=== PATIENT | female | born 1955 | race Caucasian/White ===

== ENCOUNTER 2019-06-16 18:28 | Emergency (ER) | payer OTHER ==
[2019-06-16] MEDS ORDERED: DUONEB 0.5-3 MG/3 ml Neb IH ONE ×2 (18:46→18:54)
--- NOTE | 2019-06-16 18:58 | ERPHSYRPT ---
- History of Present Illness Time Seen by Provider: 06/16/19 18:56 Source: patient Exam Limitations: no limitations Patient Subjective Stated Complaint: Patient states she has had severe cough, sore throat, and body aches for over a week. Patient states she seen PCP on and had strep test completed in which was negative. Patient was started on cephalexin 06/11/19 for sinusitis. Patient states she has had a runny nose and that she has been having pain in left ear. Triage Nursing Assessment: Patient arrived to ER. Patient ambulated to room with steady gait. Patient able to answer questions appropriatley. Overall color pale. Skin warm and dry. Lungs diminished A/P throughout. Patient noted to have dry productive cough. Patient noted with runny nose. Patient denies SOB. Respiratory easy non-labored. No respiratory distress noted. Physician History: Patient states she has had severe cough, sore throat, and body aches for over a week. Patient states she seen PCP on 06/11/19 and had strep test completed in which was negative. Patient was started on cephalexin 06/11/19 for sinusitis. Patient states she has had a runny nose and that she has been having pain in left ear. Timing/Duration: day(s) (5 days ago) Cough Quality/Degree: productive cough Associated Symptoms: fever, chills, chest pain/soreness, cough, headache, sore throat International travel in last 2 weeks: No Allergies/Adverse Reactions: levofloxacin [From Levaquin] Allergy (Verified 06/16/19 18:37) shellfish derived Allergy (Verified 06/16/19 18:37) Home Medications: Aspirin 81 gm Chew [Baby Aspirin 81 mg Chew] 81 mg PO DAILY 06/16/19 [ History] Cephalexin Mh 250 mg [Keflex 250 mg] 250 mg PO QID 06/16/19 [History] Gabapentin 100 mg PO DAILY 06/16/19 [History] Hydrocodone/Acetaminophen [Hydrocodone-Acetamin 10-325 mg] 10 - 325 mg PO Q6H PRN PRN 06/16/19 [History] Montelukast Sodium 10 mg [Singulair 10 MG] 10 mg PO DAILY 06/16/19 [History] Hx Tetanus, Diphtheria Vaccination/Date Given: No Hx Influenza Vaccination/Date Given: Yes Hx Pneumococcal Vaccination/Date Given: Yes - Review of Systems Constitutional: Fever, Chills Eyes: No Symptoms Ears, Nose, & Throat: No Symptoms Respiratory: Cough, Wheezing, No Dyspnea Cardiac: No Chest Pain, No Edema, No Syncope Abdominal/Gastrointestinal: No Abdominal Pain, No Nausea, No Vomiting, No Diarrhea Genitourinary Symptoms: No Dysuria Musculoskeletal: No Back Pain, No Neck Pain Skin: No Rash Neurological: No Dizziness, No Focal Weakness, No Sensory Changes Psychological: No Symptoms Endocrine: No Symptoms All Other Systems: Reviewed and Negative - Past Medical History Neurological History: Stroke ENT History: Other Cardiac History: High Cholesterol, Hypertension Respiratory History: No Pertinent History Endocrine Medical History: Diabetes Type I Musculoskeletal History: Arthritis, Fibromyalgia GI Medical History: GI Bleed History: No Pertinent History Psycho-Social History: No Pertinent History Female Reproductive Disorders: No Pertinent History - Past Surgical History Past Surgical History: Yes Neuro Surgical History: No Pertinent History Cardiac: CABG, Pacemaker Respiratory: No Pertinent History Gastrointestinal: No Pertinent History Genitourinary: No Pertinent History Musculoskeletal: No Pertinent History Female Surgical History: Hysterectomy - Social History Smoking Status: Former smoker Exposure to second hand smoke: Yes Drug Use: none Patient Lives Alone: No - Nursing Vital Signs Nursing Vital Signs: Initial Vital Signs Temperature 98.1 F 06/16/19 18:37 Pulse Rate 73 06/16/19 18:37 Respiratory Rate 18 06/16/19 18:37 Blood Pressure 149/84 06/16/19 18:37 O2 Sat by Pulse Oximetry 97 06/16/19 18:37 Pain Scale Pain Intensity 0 - Physical Exam General Appearance: no apparent distress, alert Eye Exam: PERRL/EOMI, eyes nml inspection Ears, Nose, Throat Exam: normal ENT inspection, TMs normal, pharynx normal, moist mucous membranes Neck Exam: normal inspection, non-tender, supple, full range of motion Respiratory Exam: normal breath sounds, diminished breath sounds, crackles/rales , rhonchi, wheezing, No respiratory distress Cardiovascular Exam: regular rate/rhythm, normal heart sounds Gastrointestinal/Abdomen Exam: soft, No tenderness Back Exam: normal inspection, No CVA tenderness, No vertebral tenderness Extremity Exam: normal inspection, normal range of motion Neurologic Exam: alert, oriented x 3, cooperative, normal mood/affect, sensation nml, No motor deficits Skin Exam: normal color, warm, dry, No rash Lymphatic Exam: No adenopathy SpO2: 99 - Course Nursing assessment & vital signs reviewed: Yes - Radiology Exams Chest X-ray Interpretation: Reviewed by me Ordered Tests: Active Orders 24 hr Category Date Time Status CHEST 2 VIEWS (PA AND LAT) Stat Exams 06/16/19 18:46 Completed CBC W DIFF Stat Lab 06/16/19 19:04 Completed CMP Stat Lab 06/16/19 19:04 Completed Respiratory Therapy Assessment DAILY RT 06/16/19 19:06 Completed Medication Summary Discontinued Medications Generic Name Dose Route Start Last Admin Trade Name Freq PRN Reason Stop Dose Admin Albuterol/Ipratropium 3 ml 06/16/19 18:46 06/16/19 18:57 Duoneb 0.5-3 Mg/3 Ml Neb IH 06/16/19 18:47 3 ml STAT ONE Administration Albuterol/Ipratropium Confirm 06/16/19 18:54 Duoneb 0.5-3 Mg/3 Ml Neb Administered 06/16/19 18:55 Dose 3 ml IH .STK-MED ONE Ceftriaxone Sodium 1,000 mg 06/16/19 19:55 06/16/19 20:22 Rocephin 1000 Mg Inj IM 06/16/19 19:56 1,000 mg STAT ONE Administration Ceftriaxone Sodium Confirm 06/16/19 20:10 Rocephin 1000 Mg Inj Administered 06/16/19 20:11 Dose 1,000 mg .ROUTE .STK-MED ONE Lidocaine HCl Confirm 06/16/19 20:10 Xylocaine 1% Hcl 20 Ml Mdv Administered 06/16/19 20:11 Dose 3 ml .ROUTE .STK-MED ONE Methylprednisolone Sodium Succinate 125 mg 06/16/19 19:57 06/16/19 20:21 Solu-Medrol 125 Mg IM 06/16/19 19:58 125 mg STAT ONE Administration Methylprednisolone Sodium Succinate Confirm 06/16/19 20:10 Solu-Medrol 125 Mg Administered 06/16/19 20:11 Dose 125 mg .ROUTE .STK-MED ONE Lab/Rad Data: Laboratory Result Diagrams 06/16/19 19:04 06/16/19 19:04 Laboratory Results 06/16/19 06/16/19 06/16/19 Range/Units Unknown 19:04 19:04 WBC 5.1 (4.0-10.5) K/mm3 RBC 4.39 (4.1-5.4) M/mm3 Hgb 13.0 (12.0-16.0) gm/dl Hct 41.1 (35-47) % MCV 93.6 (78-100) fl MCH 29.6 (26-32) pg MCHC 31.6 L (32-36) g/dl RDW 15.1 H (11.5-14.0) % Plt Count 236 (150-450) K/mm3 MPV 10.0 H (7.5-11.0) fl Gran % 58.2 (36.0-66.0) % Eos # (Auto) 0.10 (0-0.5) Absolute Lymphs (auto) 1.26 (1.0-4.6) Absolute Monos (auto) 0.73 (0.0-1.3) Lymphocytes % 24.8 (24.0-44.0) % Monocytes % 14.4 H (0.0-12.0) % Eosinophils % 2.0 (0.00-5.0) % Basophils % 0.6 (0.0-0.4) % Absolute Granulocytes 2.96 (1.4-6.9) Basophils # 0.03 (0-0.4) Sodium 140 (137-145) mmol/L Potassium 4.1 (3.5-5.1) mmol/L Chloride 106 (98-107) mmol/L Carbon Dioxide 27 (22-30) mmol/L Anion Gap 11.2 (5-15) MEQ/L BUN 18 H (7-17) mg/dL Creatinine 0.90 (0.52-1.04) mg/dL Estimated GFR > 60.0 ML/MIN Glucose 183 H (74-106) mg/dL Calcium 9.6 (8.4-10.2) mg/dL Total Bilirubin 0.30 (0.2-1.3) mg/dL AST 23 (14-36) U/L ALT 17 (0-35) U/L Alkaline Phosphatase 61 (38-126) U/L Serum Total Protein 7.1 (6.3-8.2) g/dL Albumin 4.2 (3.5-5.0) g/dL Influenza Type A Ag NEGATIVE (NEGATIVE) Influenza Type B Ag NEGATIVE (NEGATIVE) RSV (PCR) POSITIVE (Negative) - Progress Progress: improved Air Movement: good Blood Culture(s) Obtained: No Antibiotics given: Yes Counseled pt/family regarding: lab results, diagnosis, need for follow-up, rad results - Departure Departure Disposition: Home Clinical Impression: Bronchitis, RSV bronchitis Condition: Stable Critical Care Time: No Referrals: GALINDO NEWELL [Primary Care Provider] - Instructions: Acute Bronchitis, Adult (DC) Additional Instructions: ONEIDABrittaneyCARLOZ DICKINSON was seen on 06/16/19 n the Emergency Room. At that time you were treated for an emergent condition, during your visit Laboratory, Radiology and/or other procedures may have been ordered. It is very important that you follow-up with your Primary Care Physician GALINDO NEWELL within the next 24-48 hours to review your Emergency Room visit and the final results of testing that was ordered. Some test results such as Urine Cultures, Blood Cultures, and other cultures if ordered will not be finalized for 24-48 hours. If you do not have a Primary Care Provider please call the medical records department at [phone] ext [phone] to obtain a copy of your results or you may sign into our patient portal to obtain these results by visiting us @ [email or web address] and completing the following steps: 1. Click on the Patient Portal link 2. Click the Patient Self Enrollment Link to complete the enrollment form and entering your 3. Once the enrollment form is completed you will receive an email with a temporary ID and password at the email address you provided. 4. Next choose a user name and password. Your user name must be at least 4 characters long and your password must be at least 4 characters long. 5. Choose a security question from the list and provide your answer to the question. If you already have signed into the Health Portal you may access your Health Care Information 03/01 by the following steps: 1. Login to our website @ [email or web address] 2. Enter your original user name and password. FAQS The [facility] Health Portal is an online tool that contains your Lab Results, Radiology Reports, Visit History, Discharge Instructions and Health Summary Lab and Radiology Results will not be available for 72 hours on the portal. The Portal is a secure site, passwords are encryted and URLs are re-written so they cannot be copied and pasted. You and authorized family members are the only ones who can access your Portal. Also there is a timeout feature that protects your information if you leave the Portal page open. If you have technical difficulty please use the Contact Us link on the page this will allow you to submit any questions you have regarding the Portal or you may contact the Medical Record Department at [phone] ext [phone]. Prescriptions: Methylprednisolone Packet [Medrol Dosepack] 4 mg PO UD #30 packet
[2019-06-16 19:31] LABS: Absolute Neutrophil Ct (ANC) 2.96 (1.4-6.9); BASOPHIL % 0.6 % (0.0-0.4); Basophil (Absolute #) 0.03 (0-0.4); Hematocrit 41.1 % (35-47); Lymphocyte (Absolute #) 1.26 (1.0-4.6); Lymphocytes % 24.8 % (24.0-44.0); Mean Cell Volume 93.6 fl (78-100); Mean Corpuscular Hemoglobin 29.6 pg (26-32); Mean Corpuscular Hgb Concent. 31.6 g/dl (32-36); Monocyte (Absolute #) 0.73 (0.0-1.3); Monocytes % 14.4 % (0.0-12.0); Neutrophil % 58.2 % (36.0-66.0); Platelet Count 236 K/mm3 (150-450); Red Blood Count 4.39 M/mm3 (4.1-5.4); Red Cell Distribution Width 15.1 % (11.5-14.0); White Blood Count 5.1 K/mm3 (4.0-10.5)
[2019-06-16 19:36] LABS: ALBUMIN 4.2 g/dL (3.5-5.0); ALKALINE PHOSPHATASE 61 U/L (38-126); ANION GAP 11.2 MEQ/L (5-15); BLOOD UREA NITROGEN 18 mg/dL (7-17); CHLORIDE 106 mmol/L (98-107); Calcium 9.6 mg/dL (8.4-10.2); Carbon Dioxide 27 mmol/L (22-30); Glucose 183 mg/dL (74-106); Potassium 4.1 mmol/L (3.5-5.1); SGOT/AST 23 U/L (14-36); SGPT/ALT 17 U/L (0-35); SODIUM 140 mmol/L (137-145); Total Protein 7.1 g/dL (6.3-8.2)
[2019-06-16] MEDS ORDERED: Rocephin 1000 MG INJ IM ONE (19:55)
[2019-06-16] MEDS ORDERED: solu-MEDROL 125 MG IM ONE (19:57)
[2019-06-16] MEDS ORDERED: Rocephin 1000 MG INJ ONE (20:10)
[2019-06-16] MEDS ORDERED: XYLOCAINE 1% HCL 20 ML MDV ONE (20:10)
[2019-06-16] MEDS ORDERED: solu-MEDROL 125 MG ONE (20:10)
--- NOTE | 2019-06-16 20:12 | XRAY ---
Indication: Short of breath. Comparison: None PA/lateral chest demonstrates bilateral fibrosis/scarring. No focal infiltrate, consolidation, or large effusion. Heart is not enlarged with incidental CABG surgery and left-sided dual lead pacemaker. Bony thorax intact with mild osteopenia and degenerative changes. Impression: Nonacute chest with chronic features.
[2019-06-16 20:48] LABS: INFLUENZA A NEGATIVE (NEGATIVE); INFLUENZA B NEGATIVE (NEGATIVE)
[2019-06-16 20:49] LABS: RESPIRATORY SYNCTIAL VIRUS POSITIVE (Negative)
[2019-06-16 20:57] VITALS: BP 176/78; PULSE 68
[2019-06-16 21:01] VITALS: O2SAT 99
== END 2019-06-16 20:57 | disposition home or self-care (01) ==
LOC: ED 18:28
DX: J20.5 Acute bronchitis due to respiratory syncytial virus (principal)
CPT/HCPCS: 36415; 71046; 80053; 85025; 87631; 94640; 96372; 99284; J0696; J2930; A9270-GY

== ENCOUNTER 2019-06-29 20:10 | Emergency (ER) | payer OTHER ==
[2019-06-29] MEDS ORDERED: solu-MEDROL 125 MG IV ONE (20:31)
[2019-06-29] MEDS ORDERED: Sodium Chloride 0.9% 1000 ML 1,000 ML IV STA (20:31)
[2019-06-29] MEDS ORDERED: Pepcid 20 MG PO ONE (20:31)
--- NOTE | 2019-06-29 20:31 | ERPHSYRPT ---
- History of Present Illness Time Seen by Provider: 06/29/19 20:17 Source: patient Exam Limitations: no limitations Patient Subjective Stated Complaint: itching Physician History: treatment for bronchitis for 2 weeks. She has had 3 different antibiotics orally and injections. She took Ceftinir tonight and developed pruritus. no difficulty breathing Timing/Duration: week(s) (2) Quality: itchy Severity: mild Location: generalized Possible Causes: medications Modifying Factors: Improves With: antihistamine Associated Symptoms: denies symptoms Allergies/Adverse Reactions: levofloxacin [From Levaquin] Allergy (Verified 06/16/19 18:37) shellfish derived Allergy (Verified 06/16/19 18:37) Home Medications: Aspirin 81 gm Chew [Baby Aspirin 81 mg Chew] 81 mg PO DAILY 06/16/19 [ History] Cephalexin Mh 250 mg [Keflex 250 mg] 250 mg PO QID 06/16/19 [History] Gabapentin 100 mg PO DAILY 06/16/19 [History] Hydrocodone/Acetaminophen [Hydrocodone-Acetamin 10-325 mg] 10 - 325 mg PO Q6H PRN PRN 06/16/19 [History] Montelukast Sodium 10 mg [Singulair 10 MG] 10 mg PO DAILY 06/16/19 [History] Hx Tetanus, Diphtheria Vaccination/Date Given: No Hx Influenza Vaccination/Date Given: Yes Hx Pneumococcal Vaccination/Date Given: Yes - Review of Systems Constitutional: No Fever, No Chills Eyes: No Symptoms Ears, Nose, & Throat: No Symptoms Respiratory: No Cough, No Dyspnea Cardiac: No Chest Pain, No Edema, No Syncope Abdominal/Gastrointestinal: No Abdominal Pain, No Nausea, No Vomiting, No Diarrhea Genitourinary Symptoms: No Dysuria Musculoskeletal: No Back Pain, No Neck Pain Skin: Pruritis, No Rash Neurological: No Dizziness, No Focal Weakness, No Sensory Changes Psychological: No Symptoms Endocrine: No Symptoms All Other Systems: Reviewed and Negative - Past Medical History Neurological History: Stroke ENT History: Other Cardiac History: High Cholesterol, Hypertension Respiratory History: No Pertinent History Endocrine Medical History: Diabetes Type I Musculoskeletal History: Arthritis, Fibromyalgia GI Medical History: GI Bleed History: No Pertinent History Psycho-Social History: No Pertinent History Female Reproductive Disorders: No Pertinent History - Past Surgical History Past Surgical History: Yes Neuro Surgical History: No Pertinent History Cardiac: CABG, Pacemaker Respiratory: No Pertinent History Gastrointestinal: No Pertinent History Genitourinary: No Pertinent History Musculoskeletal: No Pertinent History Female Surgical History: Hysterectomy - Social History Smoking Status: Former smoker Exposure to second hand smoke: Yes Drug Use: none Patient Lives Alone: No - Nursing Vital Signs Nursing Vital Signs: Initial Vital Signs Temperature 98.6 F 06/29/19 20:17 Pulse Rate 67 06/29/19 20:17 Respiratory Rate 18 06/29/19 20:17 Blood Pressure 175/101 06/29/19 20:17 O2 Sat by Pulse Oximetry 98 06/29/19 20:17 Pain Scale Pain Intensity 0 - Physical Exam General Appearance: mild distress, alert Eye Exam: PERRL/EOMI, eyes nml inspection Ears, Nose, Throat Exam: normal ENT inspection, pharynx normal, moist mucous membranes Neck Exam: normal inspection, non-tender, supple, full range of motion Respiratory Exam: normal breath sounds, lungs clear, No respiratory distress Cardiovascular Exam: regular rate/rhythm, normal heart sounds Gastrointestinal/Abdomen Exam: soft, mass, No tenderness Back Exam: normal inspection, normal range of motion, No CVA tenderness, No vertebral tenderness Extremity Exam: normal inspection, normal range of motion Neurologic Exam: alert, oriented x 3, cooperative, normal mood/affect, sensation nml, No motor deficits Skin Exam: normal color, warm, dry SpO2 Interpretation: normal SpO2: 98 O2 Delivery: Room Air - Course Nursing assessment & vital signs reviewed: Yes - Radiology Exams Chest X-ray Interpretation: Interpreted by me, Negative, No Infiltrates Ordered Tests: Active Orders 24 hr Category Date Time Status IV Insertion STAT Care 06/29/19 20:31 Active CHEST 1 VIEW (PORTABLE) Stat Exams 06/29/19 20:32 Taken AMYLASE Stat Lab 06/29/19 20:35 Completed BLOOD CULTURE Stat Lab 06/29/19 21:06 Received CBC W DIFF Stat Lab 06/29/19 20:39 Completed CMP Stat Lab 06/29/19 20:39 Completed LIPASE Stat Lab 06/29/19 20:35 Completed Lactic Acid Stat Lab 06/29/19 20:55 Completed Medication Summary Generic Name Dose Route Start Last Admin Trade Name Freq PRN Reason Stop Dose Admin Sodium Chloride 1,000 mls @ 999 mls/hr 06/29/19 20:31 06/29/19 20:47 Sodium Chloride 0.9% 1000 Ml IV 06/29/19 21:31 999 mls/hr .[id number] STA Administration Discontinued Medications Generic Name Dose Route Start Last Admin Trade Name Saul PRN Reason Stop Dose Admin Famotidine 20 mg 06/29/19 20:31 06/29/19 20:47 Pepcid 20 Mg PO 06/29/19 20:32 20 mg STAT ONE Administration Famotidine Confirm 06/29/19 20:43 Pepcid 20 Mg Administered 06/29/19 20:44 Dose 20 mg .ROUTE .STK-MED ONE Sodium Chloride Confirm 06/29/19 20:43 Sodium Chloride 0.9% 1000 Ml Administered 06/29/19 20:44 Dose 1,000 mls @ ud .ROUTE .STK-MED ONE Levetiracetam 1,000 mg/ 110 mls @ 220 mls/hr 06/29/19 21:16 06/29/19 21:24 Dextrose IV 06/29/19 21:45 Not Given STAT ONE Methylprednisolone Sodium Succinate 125 mg 06/29/19 20:31 06/29/19 20:47 Solu-Medrol 125 Mg IV 06/29/19 20:32 125 mg STAT ONE Administration Methylprednisolone Sodium Succinate Confirm 06/29/19 20:43 Solu-Medrol 125 Mg Administered 06/29/19 20:44 Dose 125 mg .ROUTE .STK-MED ONE Lab/Rad Data: Laboratory Result Diagrams 06/29/19 20:39 06/29/19 20:39 Laboratory Results 06/29/19 06/29/19 06/29/19 Range/Units 20:55 20:39 20:39 WBC 9.9 (4.0-10.5) K/mm3 RBC 4.50 (4.1-5.4) M/mm3 Hgb 13.5 (12.0-16.0) gm/dl Hct 41.8 (35-47) % MCV 92.9 (78-100) fl MCH 30.0 (26-32) pg MCHC 32.3 (32-36) g/dl RDW 15.2 H (11.5-14.0) % Plt Count 242 (150-450) K/mm3 MPV 9.6 (7.5-11.0) fl Gran % 67.4 H (36.0-66.0) % Eos # (Auto) 0.13 (0-0.5) Absolute Lymphs (auto) 2.24 (1.0-4.6) Absolute Monos (auto) 0.83 (0.0-1.3) Lymphocytes % 22.6 L (24.0-44.0) % Monocytes % 8.4 (0.0-12.0) % Eosinophils % 1.3 (0.00-5.0) % Basophils % 0.3 (0.0-0.4) % Absolute Granulocytes 6.67 (1.4-6.9) Basophils # 0.03 (0-0.4) Sodium 138 (137-145) mmol/L Potassium 4.0 (3.5-5.1) mmol/L Chloride 105 (98-107) mmol/L Carbon Dioxide 26 (22-30) mmol/L Anion Gap 11.5 (5-15) MEQ/L BUN 14 (7-17) mg/dL Creatinine 0.76 (0.52-1.04) mg/dL Estimated GFR > 60.0 ML/MIN Glucose 155 H (74-106) mg/dL Lactic Acid 1.7 (0.4-2.0) Calcium 9.2 (8.4-10.2) mg/dL Total Bilirubin 0.30 (0.2-1.3) mg/dL AST 30 (14-36) U/L ALT 30 (0-35) U/L Alkaline Phosphatase 73 (38-126) U/L Serum Total Protein 7.1 (6.3-8.2) g/dL Albumin 4.2 (3.5-5.0) g/dL Amylase (30-110) U/L Lipase (23-300) U/L 06/29/19 Range/Units 20:35 WBC (4.0-10.5) K/mm3 RBC (4.1-5.4) M/mm3 Hgb (12.0-16.0) gm/dl Hct (35-47) % MCV (78-100) fl MCH (26-32) pg MCHC (32-36) g/dl RDW (11.5-14.0) % Plt Count (150-450) K/mm3 MPV (7.5-11.0) fl Gran % (36.0-66.0) % Eos # (Auto) (0-0.5) Absolute Lymphs (auto) (1.0-4.6) Absolute Monos (auto) (0.0-1.3) Lymphocytes % (24.0-44.0) % Monocytes % (0.0-12.0) % Eosinophils % (0.00-5.0) % Basophils % (0.0-0.4) % Absolute Granulocytes (1.4-6.9) Basophils # (0-0.4) Sodium (137-145) mmol/L Potassium (3.5-5.1) mmol/L Chloride (98-107) mmol/L Carbon Dioxide (22-30) mmol/L Anion Gap (5-15) MEQ/L BUN (7-17) mg/dL Creatinine (0.52-1.04) mg/dL Estimated GFR ML/MIN Glucose (74-106) mg/dL Lactic Acid (0.4-2.0) Calcium (8.4-10.2) mg/dL Total Bilirubin (0.2-1.3) mg/dL AST (14-36) U/L ALT (0-35) U/L Alkaline Phosphatase (38-126) U/L Serum Total Protein (6.3-8.2) g/dL Albumin (3.5-5.0) g/dL Amylase 72 (30-110) U/L Lipase 142 (23-300) U/L - Progress Progress: unchanged - Departure Departure Disposition: Home Clinical Impression: Allergic reaction Condition: Stable Critical Care Time: No Referrals: GALINDO NEWELL [Primary Care Provider] - Instructions: Adverse Drug Reactions, Adult (DC)
[2019-06-29] MEDS ORDERED: Sodium Chloride 0.9% 1000 ML 1,000 ML ONE (20:43)
[2019-06-29] MEDS ORDERED: Pepcid 20 MG ONE (20:43)
[2019-06-29] MEDS ORDERED: solu-MEDROL 125 MG ONE (20:43)
[2019-06-29 20:50] LABS: Absolute Neutrophil Ct (ANC) 6.67 (1.4-6.9); BASOPHIL % 0.3 % (0.0-0.4); Basophil (Absolute #) 0.03 (0-0.4); Eosinophil % 1.3 % (0.00-5.0); Eosinophil (Absolute #) 0.13 (0-0.5); Hematocrit 41.8 % (35-47); Hemoglobin 13.5 gm/dl (12.0-16.0); Lymphocyte (Absolute #) 2.24 (1.0-4.6); Lymphocytes % 22.6 % (24.0-44.0); Mean Cell Volume 92.9 fl (78-100); Mean Corpuscular Hgb Concent. 32.3 g/dl (32-36); Mean Platelet Volume 9.6 fl (7.5-11.0); Monocyte (Absolute #) 0.83 (0.0-1.3); Monocytes % 8.4 % (0.0-12.0); Neutrophil % 67.4 % (36.0-66.0); Platelet Count 242 K/mm3 (150-450); Red Cell Distribution Width 15.2 % (11.5-14.0); White Blood Count 9.9 K/mm3 (4.0-10.5)
[2019-06-29 20:55] LABS: AMYLASE 72 U/L (30-110); LIPASE 142 U/L (23-300)
[2019-06-29 20:56] LABS: ALBUMIN 4.2 g/dL (3.5-5.0); ALKALINE PHOSPHATASE 73 U/L (38-126); ANION GAP 11.5 MEQ/L (5-15); BLOOD UREA NITROGEN 14 mg/dL (7-17); CHLORIDE 105 mmol/L (98-107); Calcium 9.2 mg/dL (8.4-10.2); Carbon Dioxide 26 mmol/L (22-30); Creatinine 1 0.76 mg/dL (0.52-1.04); Glucose 155 mg/dL (74-106); SGOT/AST 30 U/L (14-36); SGPT/ALT 30 U/L (0-35); SODIUM 138 mmol/L (137-145); Total Protein 7.1 g/dL (6.3-8.2)
[2019-06-29] MEDS ORDERED: Keppra 500 MG/5 ML*** 1,000 MG in D5w 100ML Mini Bag 100 ML 100 ML IV ONE (21:16)
[2019-06-29 21:28] VITALS: PULSE 60
[2019-06-29 21:48] VITALS: BP 133/85; O2SAT 97
--- NOTE | 2019-06-30 08:15 | XRAY ---
Indication: Cough. Comparison: June 16, 2019. Portable apical lordotic chest demonstrates stable bilateral fibrosis/scarring, CABG surgery, and left sided pacemaker. Remaining heart and lungs unremarkable. No new/acute findings.
== END 2019-06-29 21:49 | disposition home or self-care (01) ==
LOC: ED 20:10
DX: T78.40XA Allergy, unspecified, initial encounter (principal); L29.9 Pruritus, unspecified; I10 Essential (primary) hypertension; E10.9 Type 1 diabetes mellitus without complications; M79.7 Fibromyalgia; Z95.0 Presence of cardiac pacemaker
CPT/HCPCS: 36000; 36415; 71045; 80053; 82150; 83605; 83690; 85025; 87040; 96360; 96374; 99284; J2930; A9270-GY

== ENCOUNTER 2020-06-18 15:17 | Emergency (ER) | payer OTHER ==
[2020-06-18] MEDS ORDERED: Zofran 4 MG/2 ML VIAL IV ONE (15:33)
[2020-06-18] MEDS ORDERED: MORPHINE SULFATE 4 MG INJ IV ONE (15:33)
[2020-06-18] MEDS ORDERED: Norflex 60 MG/2 ML IV ONE (15:35)
--- NOTE | 2020-06-18 15:42 | ERPHSYRPT ---
- History of Present Illness Time Seen by Provider: 06/18/20 15:30 Source: patient Exam Limitations: no limitations Patient Subjective Stated Complaint: back pain and chest pain Triage Nursing Assessment: pt to ED c/o lower back pain that radiates to chest, L arm, and neck. pt states pain is sharp and intermittent. "spasm once in a while." pt states she has pacemaker but it is due to be replaced soon, "I'm waiting to hear a beep." pt rates 9/10 pain in back. ambulatory with 1 assist. pt states she fell to the floor this am after getting out of bed and is now worried about pacemaker. Physician History: 64 years old female with history of coronary artery disease status post CABG, pacemaker placement, chronic back pain going through pain management presented in the ER with chief complaint of low back pain. Patient reports she was getting off of the bed, her knees gave away and fell on the floor. She hit her back on the side of the bed. She is complaining of worsening low back pain with radiation to upper mid back. She denies any chest pain or palpitations. Or shortness of breath. Patient report because of the fall she is having pain in the upper back with radiation to the both arms. No fever or chills reported. Timing/Duration: today, sudden, worse Method of Injury: fall Quality: sharp Back Pain Location: lumbar spine, paraspinous muscles Back Pain Radiation: buttocks, upper legs Severity of Pain-Max: severe Severity of Pain-Current: severe Modifying Factors: Improves With: immobilization, pain medication. Worsens With: movement Associated Symptoms: lower back pain, muscle spasms, No urinary incontinence, No loss of bowel control, No vomiting, No problems urinating, No light-headedness, No numbness in legs/feet, No weakness, No sensory/motor loss, No tingling in legs/feet Previous symptoms: same symptoms as today Allergies/Adverse Reactions: levofloxacin [From Levaquin] Allergy (Verified 06/18/20 15:27) shellfish derived Allergy (Verified 06/18/20 15:27) Home Medications: Aspirin 81 gm Chew [Baby Aspirin 81 mg Chew] 81 mg PO DAILY 06/16/19 [History] Cephalexin Mh 250 mg [Keflex 250 mg] 250 mg PO QID 06/16/19 [History] Gabapentin 100 mg PO DAILY 06/16/19 [History] Hydrocodone/Acetaminophen [Hydrocodone-Acetamin 10-325 mg] 10 - 325 mg PO Q6H PRN PRN 06/16/19 [History] Montelukast Sodium 10 mg [Singulair 10 MG] 10 mg PO DAILY 06/16/19 [History] Hx Tetanus, Diphtheria Vaccination/Date Given: No Hx Influenza Vaccination/Date Given: Yes Hx Pneumococcal Vaccination/Date Given: Yes Travel Risk - International Travel Have you traveled outside of the country in past 3 weeks: No - Coronavirus Screening Are you exhibiting any of the following symptoms?: No Close contact with a COVID-19 positive Pt in past 14-21 Days: No - Past Medical History Neurological History: Stroke ENT History: Other Cardiac History: High Cholesterol, Hypertension Respiratory History: No Pertinent History Endocrine Medical History: Diabetes Type I Musculoskeletal History: Arthritis, Fibromyalgia GI Medical History: GI Bleed History: No Pertinent History Psycho-Social History: No Pertinent History Female Reproductive Disorders: No Pertinent History - Past Surgical History Past Surgical History: Yes Neuro Surgical History: No Pertinent History Cardiac: CABG, Cardiac Catheterization, Cardiac Stent, Pacemaker Respiratory: No Pertinent History Gastrointestinal: No Pertinent History Genitourinary: No Pertinent History Musculoskeletal: No Pertinent History Female Surgical History: Hysterectomy - Social History Smoking Status: Former smoker Exposure to second hand smoke: Yes Drug Use: none Patient Lives Alone: No () - Female History Hx Now: No - Nursing Vital Signs Nursing Vital Signs: Initial Vital Signs Pulse Rate 102 H 06/18/20 15:18 Respiratory Rate 25 H 06/18/20 15:18 Blood Pressure 148/108 06/18/20 15:18 O2 Sat by Pulse Oximetry 98 06/18/20 15:18 Pain Scale Pain Intensity [Lower Back] 9 Pain Intensity 5 - Physical Exam General Appearance: no apparent distress Eye Exam: PERRL/EOMI, eyes nml inspection Ears, Nose, Throat Exam: normal ENT inspection, TMs normal, pharynx normal Neck Exam: normal inspection, non-tender, supple, full range of motion Respiratory Exam: normal breath sounds, lungs clear, No chest tenderness Cardiovascular Exam: regular rate/rhythm, normal heart sounds Gastrointestinal Exam: soft, normal bowel sounds (40 years quality), No tenderness (Body quantity equina) Back Exam: normal inspection ( oxygenation), vertebral tenderness (lumbar), decreased range of motion, muscle spasm, point tenderness, other (SLR B/L positive at 30 degree elevation), No CVA tenderness Extremity Exam: normal inspection, normal range of motion Neurologic Exam: alert, oriented x 3, cooperative Skin Exam: normal color SpO2 Interpretation: normal (Still) SpO2: 98 O2 Delivery: Room Air (No,) - Course EKG Interpreted by Me: RATE, Sinus Rhythm, Left [place] Deviation, LAFB, Non- specific ST Changes Ordered Tests: Active Orders 24 hr Category Date Time Status EKG-ER Only STAT Care 06/18/20 15:33 Completed IV Insertion STAT Care 06/18/20 15:33 Completed CHEST 1 VIEW (PORTABLE) Stat Exams 06/18/20 15:34 Completed LUMBAR SPINE W/O [CT] Stat Exams 06/18/20 15:33 Completed CBC W DIFF Stat Lab 06/18/20 15:33 Completed CMP Stat Lab 06/18/20 15:33 Completed CULTURE,URINE Stat Lab 06/18/20 16:57 Received TROPONIN Q3H Lab 06/18/20 15:50 Completed UA W/RFX UR CULTURE Stat Lab 06/18/20 16:57 Completed Medication Summary Discontinued Medications Generic Name Dose Route Start Last Admin Trade Name Freq PRN Reason Stop Dose Admin Cephalexin HCl 500 mg 06/18/20 17:27 06/18/20 17:35 Keflex 500 Mg PO 06/18/20 17:28 500 mg STAT ONE Administration Cephalexin HCl Confirm 06/18/20 17:33 Keflex 500 Mg Administered 06/18/20 17:34 Dose 500 mg .ROUTE .STK-MED ONE Morphine Sulfate 4 mg 06/18/20 15:33 06/18/20 15:48 Morphine Sulfate 4 Mg Inj IV 06/18/20 15:34 4 mg STAT ONE Administration Morphine Sulfate Confirm 06/18/20 15:43 Morphine Sulfate 4 Mg Inj Administered 06/18/20 15:44 Dose 4 mg .ROUTE .STK-MED ONE Ondansetron HCl 4 mg 06/18/20 15:33 06/18/20 15:46 Zofran 4 Mg/2 Ml Vial IV 06/18/20 15:34 4 mg STAT ONE Administration Ondansetron HCl Confirm 06/18/20 15:43 Zofran 4 Mg/2 Ml Vial Administered 06/18/20 15:44 Dose 4 mg .ROUTE .STK-MED ONE Orphenadrine Citrate 60 mg 06/18/20 15:35 06/18/20 15:49 Norflex 60 Mg/2 Ml IV 06/18/20 15:36 60 mg STAT ONE Administration Orphenadrine Citrate Confirm 06/18/20 15:43 Norflex 60 Mg/2 Ml Administered 06/18/20 15:44 Dose 60 mg .ROUTE .STK-MED ONE Lab/Rad Data: Laboratory Result Diagrams 06/18/20 15:33 06/18/20 15:33 Laboratory Results 06/18/20 06/18/20 06/18/20 Range/Units 16:57 15:50 15:33 WBC (4.0-10.5) K/mm3 RBC (4.1-5.4) M/mm3 Hgb (12.0-16.0) gm/dl Hct (35-47) % MCV (78-100) fl MCH (26-32) pg MCHC (32-36) g/dl RDW (11.5-14.0) % Plt Count (150-450) K/mm3 MPV (7.5-11.0) fl Gran % (36.0-66.0) % Eos # (Auto) (0-0.5) Absolute Lymphs (auto) (1.0-4.6) Absolute Monos (auto) (0.0-1.3) Lymphocytes % (24.0-44.0) % Monocytes % (0.0-12.0) % Eosinophils % (0.00-5.0) % Basophils % (0.0-0.4) % Absolute Granulocytes (1.4-6.9) Basophils # (0-0.4) Sodium 138 (137-145) mmol/L Potassium 4.3 (3.5-5.1) mmol/L Chloride 105 (98-107) mmol/L Carbon Dioxide 20 L (22-30) mmol/L Anion Gap 16.9 H (5-15) MEQ/L BUN 13 (7-17) mg/dL Creatinine 0.84 (0.52-1.04) mg/dL Estimated GFR > 60.0 ML/MIN Glucose 318 H (74-106) mg/dL Calcium 10.0 (8.4-10.2) mg/dL Total Bilirubin 0.70 (0.2-1.3) mg/dL AST 16 (14-36) U/L ALT 14 (0-35) U/L Alkaline Phosphatase 99 (38-126) U/L Troponin I < 0.012 (0.000-0.034) ng/mL Serum Total Protein 8.2 (6.3-8.2) g/dL Albumin 4.6 (3.5-5.0) g/dL Urine Color LOPEZ (YELLOW) Urine Appearance CLOUDY (CLEAR) Urine pH 5.0 (5-6) Ur Specific [place] 1.025 (1.005-1.025) Urine Protein 100 (Negative) Urine Ketones SMALL (NEGATIVE) Urine Blood NEGATIVE (0-5) Manohar/ul Urine Nitrite NEGATIVE (NEGATIVE) Urine Bilirubin NEGATIVE (NEGATIVE) Urine Urobilinogen 2 (0-1) mg/dL Ur Leukocyte Esterase NEGATIVE (NEGATIVE) Urine WBC (Auto) 11-15 (0-5) /HPF Urine RBC (Auto) 3-5 (0-2) /HPF U Hyaline Cast (Auto) 11-25 (0-2) /LPF U Epithel Cells (Auto) RARE (FEW) /HPF Urine Bacteria (Auto) FEW (NEGATIVE) /HPF Urine Mucus (Auto) SLIGHT (NEGATIVE) /HPF Urine Culture Reflexed YES (NO) Urine Glucose >=500 (NEGATIVE) mg/dL 06/18/20 Range/Units 15:33 WBC 10.3 (4.0-10.5) K/mm3 RBC 4.91 (4.1-5.4) M/mm3 Hgb 12.9 (12.0-16.0) gm/dl Hct 42.2 (35-47) % MCV 85.9 (78-100) fl MCH 26.3 (26-32) pg MCHC 30.6 L (32-36) g/dl RDW 15.4 H (11.5-14.0) % Plt Count 328 (150-450) K/mm3 MPV 10.0 (7.5-11.0) fl Gran % 82.9 H (36.0-66.0) % Eos # (Auto) 0.01 (0-0.5) Absolute Lymphs (auto) 0.96 L (1.0-4.6) Absolute Monos (auto) 0.78 (0.0-1.3) Lymphocytes % 9.3 L (24.0-44.0) % Monocytes % 7.6 (0.0-12.0) % Eosinophils % 0.1 (0.00-5.0) % Basophils % 0.1 (0.0-0.4) % Absolute Granulocytes 8.56 H (1.4-6.9) Basophils # 0.01 (0-0.4) Sodium (137-145) mmol/L Potassium (3.5-5.1) mmol/L Chloride (98-107) mmol/L Carbon Dioxide (22-30) mmol/L Anion Gap (5-15) MEQ/L BUN (7-17) mg/dL Creatinine (0.52-1.04) mg/dL Estimated GFR ML/MIN Glucose (74-106) mg/dL Calcium (8.4-10.2) mg/dL Total Bilirubin (0.2-1.3) mg/dL AST (14-36) U/L ALT (0-35) U/L Alkaline Phosphatase (38-126) U/L Troponin I (0.000-0.034) ng/mL Serum Total Protein (6.3-8.2) g/dL Albumin (3.5-5.0) g/dL Urine Color (YELLOW) Urine Appearance (CLEAR) Urine pH (5-6) Ur Specific [place] (1.005-1.025) Urine Protein (Negative) Urine Ketones (NEGATIVE) Urine Blood (0-5) Manohar/ul Urine Nitrite (NEGATIVE) Urine Bilirubin (NEGATIVE) Urine Urobilinogen (0-1) mg/dL Ur Leukocyte Esterase (NEGATIVE) Urine WBC (Auto) (0-5) /HPF Urine RBC (Auto) (0-2) /HPF U Hyaline Cast (Auto) (0-2) /LPF U Epithel Cells (Auto) (FEW) /HPF Urine Bacteria (Auto) (NEGATIVE) /HPF Urine Mucus (Auto) (NEGATIVE) /HPF Urine Culture Reflexed (NO) Urine Glucose (NEGATIVE) mg/dL - Progress Progress: improved, pain not gone completely, re-examined Progress Note: 06/18/20 17:20 64 years old is evaluated in the ER for acute worsening of low back pain with fall. She has a negative neuro exam in lower extremities. She has a chronic back pain and follows up with pain clinic. Pain is across low back. I have obtained CT lumbar spine which showed L3 S1 disc bulging minimal without compromising spinal canal without any fracture subluxation. She is given pain medication along with muscle relaxant, on reevaluation feeling much better although pain is reproducible with movements of lower extremities. She does not have any weakness in lower extremities, no loss of bowel or bladder control. I have obtained her EKG which is normal sinus rhythm with no acute ST elevation and negative troponins. Chest x-ray negative. Grossly unremarkable work-up otherwise. I believe patient has acute flare of chronic back pain with sciatica bilaterally. Recommended outpatient follow-up with her pain clinic and orthopedics for reevaluation. Have UTI and started on Keflex. Discussed signs symptoms of worsening needing return to ER which she seems understanding. 06/18/20 17:32 Counseled pt/family regarding: lab results, diagnosis, need for follow-up, rad results - Departure Departure Disposition: Home Clinical Impression: Acute exacerbation of chronic low back pain UTI (urinary tract infection) Qualifiers: Urinary tract infection type: site unspecified Hematuria presence: without hematuria Qualified Code(s): N39.0 - Urinary tract infection, site not specified Condition: Stable Critical Care Time: No Referrals: GALINDO NEWELL [Primary Care Provider] - Follow Up with PCP/3 days SADIE NOLASCO [ACTIVE STAFF] - (Call tomorrow for appointment for reevaluation.) Instructions: Low Back Pain (DC), Sciatica (DC) Additional Instructions: Pain/walker for ambulation to avoid a fall. Take pain medications which you are on at home. Follow-up with primary care/pain clinic for reevaluation. Also follow-up with spinal surgery for reevaluation and to see if you need surgical intervention or not. Return to ER for excruciating back pain, numbness tingling weakness of lower extremities/loss of bowel or bladder control. Prescriptions: Cephalexin Mh 500 mg [Keflex 500 mg] 500 mg PO TID #21 capsule
[2020-06-18] MEDS ORDERED: Zofran 4 MG/2 ML VIAL ONE (15:43)
[2020-06-18] MEDS ORDERED: MORPHINE SULFATE 4 MG INJ ONE (15:43)
[2020-06-18] MEDS ORDERED: Norflex 60 MG/2 ML ONE (15:43)
[2020-06-18 15:54] LABS: Absolute Neutrophil Ct (ANC) 8.56 (1.4-6.9); BASOPHIL % 0.1 % (0.0-0.4); Basophil (Absolute #) 0.01 (0-0.4); Eosinophil % 0.1 % (0.00-5.0); Eosinophil (Absolute #) 0.01 (0-0.5); Hematocrit 42.2 % (35-47); Hemoglobin 12.9 gm/dl (12.0-16.0); Lymphocyte (Absolute #) 0.96 (1.0-4.6); Lymphocytes % 9.3 % (24.0-44.0); Mean Cell Volume 85.9 fl (78-100); Mean Corpuscular Hemoglobin 26.3 pg (26-32); Mean Corpuscular Hgb Concent. 30.6 g/dl (32-36); Monocyte (Absolute #) 0.78 (0.0-1.3); Monocytes % 7.6 % (0.0-12.0); Neutrophil % 82.9 % (36.0-66.0); Platelet Count 328 K/mm3 (150-450); Red Blood Count 4.91 M/mm3 (4.1-5.4); Red Cell Distribution Width 15.4 % (11.5-14.0); White Blood Count 10.3 K/mm3 (4.0-10.5)
[2020-06-18 16:06] LABS: ALBUMIN 4.6 g/dL (3.5-5.0); ALKALINE PHOSPHATASE 99 U/L (38-126); ANION GAP 16.9 MEQ/L (5-15); BLOOD UREA NITROGEN 13 mg/dL (7-17); CHLORIDE 105 mmol/L (98-107); Carbon Dioxide 20 mmol/L (22-30); Creatinine 1 0.84 mg/dL (0.52-1.04); EST GLOMERULAR FILTRATION RATE > 60.0 ML/MIN; Glucose 318 mg/dL (74-106); Potassium 4.3 mmol/L (3.5-5.1); SGOT/AST 16 U/L (14-36); SGPT/ALT 14 U/L (0-35); SODIUM 138 mmol/L (137-145); Total Protein 8.2 g/dL (6.3-8.2)
--- NOTE | 2020-06-18 16:36 | XRAY ---
Indication: Pain following fall 3 days ago. Multiple contiguous axial images obtained through the lumbar spine. Sagittal and coronal reformatted images obtained. Comparison: None Mild L3-S1 broad-based disc bulge. No acute fracture, suspicious bony lesions, or spinal canal stenosis. Facets are symmetric. Sagittal and coronal reformatted images demonstrate normal lumbar alignment with vertebral body heights/disc spaces maintained. No acute compression fracture or subluxation. Visualized noncontrasted soft tissues demonstrates mild aortoiliac calcifications. Impression: 1. Mild L3-S1 broad-based disc bulge better evaluated with outpatient MRI. 2. Remaining CT lumbar spine is negative.
--- NOTE | 2020-06-18 16:40 | XRAY ---
Indication: Back pain following fall. Comparison: June 29, 2019. Portable chest unchanged again demonstrating mild bilateral fibrosis/scarring, CABG surgery, and left pacemaker. Bony thorax intact. No new/acute abnormalities.
[2020-06-18 17:22] LABS: Appearance CLOUDY (CLEAR); Bacteria FEW /HPF (NEGATIVE); Bilirubin NEGATIVE (NEGATIVE); Blood NEGATIVE Ery/ul (0-5); Epithelial Cells RARE /HPF (FEW); Glucose >=500 mg/dL (NEGATIVE); Ketones SMALL (NEGATIVE); Leukocyte Esterase NEGATIVE (NEGATIVE); Mucus SLIGHT /HPF (NEGATIVE); Nitrite NEGATIVE (NEGATIVE); Protein,Urine Dip 100 (Negative); Specific Gravity 1.025 (1.005-1.025); Urobilinogen 2 mg/dL (0-1)
[2020-06-18 17:24] VITALS: O2SAT 98
[2020-06-18] MEDS ORDERED: KEFLEX 500 MG PO ONE (17:27)
[2020-06-18] MEDS ORDERED: KEFLEX 500 MG ONE (17:33)
[2020-06-18 18:02] VITALS: BP 141/86; PULSE 76
== END 2020-06-18 18:04 | disposition home or self-care (01) ==
LOC: ED 15:17
DX: M54.5 Low back pain (principal); R07.9 Chest pain, unspecified; N39.0 Urinary tract infection, site not specified; W06.XXXA Fall from bed, initial encounter; E10.21 Type 1 diabetes mellitus with diabetic nephropathy; E78.5 Hyperlipidemia, unspecified; I10 Essential (primary) hypertension; I25.10 Atherosclerotic heart disease of native coronary artery without angina pectoris; Z79.899 Other long term (current) drug therapy
CPT/HCPCS: 36000; 36415; 71045; 72131; 80053; 81001; 84484; 85025; 87077; 87086; 87186; 93005; 96374; 96375; 99284; J2270; J2360; J2405; A9270-GY

== ENCOUNTER 2021-05-27 13:26 | Observation (INO) | payer MEDICARE ==
[2021-05-27] MEDS ORDERED: Sodium Chloride 0.9% 1000 ML 1,000 ML ONE (13:42)
[2021-05-27] MEDS ORDERED: Sodium Chloride 0.9% 1000 ML 1,000 ML IV SCH (13:45)
[2021-05-27 13:57] LABS: Hematocrit 24.6 % (35-47); Mean Cell Volume 85.1 fl (78-100); Mean Corpuscular Hemoglobin 24.2 pg (26-32); Mean Corpuscular Hgb Concent. 28.5 g/dl (32-36); Mean Platelet Volume 9.6 fl (7.5-11.0); Platelet Count 406 K/mm3 (150-450); Red Blood Count 2.89 M/mm3 (4.1-5.4); Red Cell Distribution Width 19.3 % (11.5-14.0); White Blood Count 6.9 K/mm3 (4.0-10.5)
--- NOTE | 2021-05-27 14:08 | ERPHSYRPT ---
- History of Present Illness Time Seen by Provider: 05/27/21 13:40 Historian: patient Exam Limitations: no limitations Patient Subjective Stated Complaint: Pt was sent to the ER by Weston Newell due to a low hemoglobin Triage Nursing Assessment: Pt was brought to the ER, hypertensive, denies pain, skin pale and cool, originally went to doctor due to having a hard time getting up in the morning due to being extremely tired, pulses normal Physician History: Patient is a 65-year-old female presents to our ED as a referral from her primary care doctor for evaluation of anemia. Patient states that she has been feeling extremely weak. Patient has been experiencing severe abdominal pain for approximately 3 months. Patient has been constipated and has been facilitating her stools with laxatives. Patient's bowel movements are dark and tarry per patient. Patient has never had a colonoscopy. Patient symptoms are pr ogressive. Patient now reports a 12 pound weight loss in the past 2 weeks. Symptoms are moderate in intensity. No specific worsening improving factors. No associated chest pain. No diaphoresis. patient voices no other complaints or concerns at this time. Timing/Duration: week(s) (Weakness for the past week.) Activities at Onset: none Quality: aching Abdominal Pain Onset Location: periumbilical Pain Radiation: no radiation Severity of Pain-Max: moderate Severity of Pain-Current: mild Associated Symptoms: other (Constipation, generalized weakness) Previous symptoms: no prior history Allergies/Adverse Reactions: levofloxacin [From Levaquin] Allergy (Verified 05/27/21 13:46) shellfish derived Allergy (Verified 05/27/21 13:46) Home Medications: Aspirin 81 gm Chew [Baby Aspirin 81 mg Chew] 81 mg PO DAILY 06/16/19 [History] Hydrocodone/Acetaminophen [Hydrocodone-Acetamin 10-325 mg] 10 - 325 mg PO Q6H PRN PRN 06/16/19 [History] Montelukast Sodium 10 mg [Singulair 10 MG] 10 mg PO DAILY 06/16/19 [History] Amlodipine Besylate 5 mg [Norvasc 5 mg] 5 mg PO DAILY 05/27/21 [History] Benazepril HCl 40 mg PO DAILY 05/27/21 [History] Fenofibrate Nanocrystallized [Fenofibrate] 48 mg PO DAILY 05/27/21 [History] Furosemide 40 mg [Lasix 40 MG] 40 mg PO DAILY 05/27/21 [History] Metformin HCl 500 mg [Glucophage 500 MG] 500 mg PO BIDWM 05/27/21 [History] Metoprolol Tartrate 50 mg [Lopressor 50 MG] 50 mg PO DAILY 05/27/21 [History] Prasugrel HCl 10 mg PO DAILY 05/27/21 [History] Simvastatin 40 mg PO DAILY 05/27/21 [History] Hx Tetanus, Diphtheria Vaccination/Date Given: No Hx Influenza Vaccination/Date Given: Yes Hx Pneumococcal Vaccination/Date Given: Yes Travel Risk - International Travel Have you traveled outside of the country in past 3 weeks: No - Coronavirus Screening Are you exhibiting any of the following symptoms?: No Close contact with a COVID-19 positive Pt in past 14-21 Days: No - Vaccine Status Have you recieved a Covid-19 vaccination: Yes [employer]: [employer] - Vaccination Dates Date of 2cond Vaccination (if applicable): 07/2020 - Review of Systems Constitutional: No Symptoms, No Fever, No Chills Eyes: No Symptoms Ears, Nose, & Throat: No Symptoms Respiratory: No Symptoms, No Cough, No Dyspnea Cardiac: No Symptoms, No Chest Pain, No Edema, No Syncope Abdominal/Gastrointestinal: No Symptoms, No Abdominal Pain, No Nausea, No Vomiting, No Diarrhea Genitourinary Symptoms: No Symptoms, No Dysuria Musculoskeletal: No Symptoms, No Back Pain, No Neck Pain Skin: No Symptoms, No Rash Neurological: No Symptoms, No Dizziness, No Focal Weakness, No Sensory Changes Psychological: No Symptoms Endocrine: No Symptoms Hematologic/Lymphatic: No Symptoms Immunological/Allergic: No Symptoms All Other Systems: Reviewed and Negative - Past Medical History Pertinent Past Medical History: Yes Neurological History: Stroke ENT History: Other Cardiac History: High Cholesterol, Hypertension Respiratory History: No Pertinent History Endocrine Medical History: Diabetes Type I Musculoskeletal History: Arthritis, Fibromyalgia GI Medical History: GI Bleed History: No Pertinent History Psycho-Social History: No Pertinent History Female Reproductive Disorders: No Pertinent History - Past Surgical History Past Surgical History: Yes Neuro Surgical History: No Pertinent History Cardiac: CABG, Cardiac Catheterization, Cardiac Stent, Pacemaker Respiratory: No Pertinent History Gastrointestinal: No Pertinent History Genitourinary: No Pertinent History Musculoskeletal: No Pertinent History Female Surgical History: Hysterectomy - Social History Smoking Status: Former smoker Exposure to second hand smoke: Yes Drug Use: none Patient Lives Alone: No () - Female History Hx Now: No - Nursing Vital Signs Nursing Vital Signs: Initial Vital Signs Temperature 97.0 F 05/27/21 13:34 Pulse Rate 74 05/27/21 13:34 Blood Pressure 161/149 05/27/21 13:34 O2 Sat by Pulse Oximetry 99 05/27/21 13:34 Pain Scale Pain Intensity 0 - Physical Exam General Appearance: no apparent distress, alert, other (Patient appears pale) Eye Exam: PERRL/EOMI, eyes nml inspection Ears, Nose, Throat Exam: normal ENT inspection, TMs normal, pharynx normal, moist mucous membranes Neck Exam: normal inspection, non-tender, supple, full range of motion Respiratory Exam: normal breath sounds, lungs clear, airway intact, No chest tenderness, No respiratory distress Cardiovascular Exam: regular rate/rhythm, normal heart sounds, normal peripheral pulses Gastrointestinal/Abdomen Exam: soft, tenderness (Periumbilical tenderness.), No mass Back Exam: normal inspection, normal range of motion, No CVA tenderness, No vertebral tenderness Extremity Exam: normal inspection, normal range of motion, pelvis stable Neurologic Exam: alert, oriented x 3, cooperative, normal mood/affect, nml cerebellar function, sensation nml, No motor deficits Skin Exam: normal color, warm, dry Lymphatic Exam: No adenopathy SpO2 Interpretation: normal SpO2: 99 O2 Delivery: Room Air - Course Nursing assessment & vital signs reviewed: Yes EKG Interpreted by Me: RATE (71), Sinus Rhythm, NORMAL AXIS (Prolonged CA interval. Left bundle branch block) - CT Exams Abdomen/Pelvis CT Interpretation: Tele-radiologist Report (Bibasilar atelectasis/scarring, scattered arteriosclerotic calcifications, and chronic bony findings. Remaining CT abdomen pelvis without contrast exam is negative.) Ordered Tests: Active Orders 24 hr Category Date Time Status IV Insertion STAT Care 05/27/21 13:36 Active IV Insertion-2nd Peripheral STAT Care 05/27/21 16:31 Active ABDOMEN AND PELVIS W/0 CONTRAS [CT] Stat Exams 05/27/21 14:00 Completed CBC W DIFF Stat Lab 05/27/21 13:48 Completed CMP Stat Lab 05/27/21 13:48 Completed LIPASE Stat Lab 05/27/21 13:59 Completed Manual Differential NC Stat Lab 05/27/21 13:48 Completed UA W/RFX UR CULTURE Stat Lab 05/27/21 14:00 Completed Transfer Order Routine Transfer 05/27/21 Ordered Medication Summary Generic Name Dose Route Start Last Admin Trade Name Saul PRN Reason Stop Dose Admin Sodium Chloride 1,000 mls @ 100 mls/hr 05/27/21 13:45 05/27/21 13:43 Sodium Chloride 0.9% 1000 Ml IV 06/26/21 13:44 100 mls/hr .Q10H YONY Administration Pantoprazole Sodium 80 mg/ 500 mls @ 50 mls/hr 05/27/21 15:15 Sodium Chloride IV 06/26/21 15:14 .Q10H YONY Lab/Rad Data: Laboratory Result Diagrams 05/27/21 13:48 05/27/21 13:48 Laboratory Results 05/27/21 05/27/21 05/27/21 Range/Units 15:50 14:00 14:00 WBC (4.0-10.5) K/mm3 RBC (4.1-5.4) M/mm3 Hgb (12.0-16.0) gm/dl Hct (35-47) % MCV (78-100) fl MCH (26-32) pg MCHC (32-36) g/dl RDW (11.5-14.0) % Plt Count (150-450) K/mm3 MPV (7.5-11.0) fl Sodium (137-145) mmol/L Potassium (3.5-5.1) mmol/L Chloride (98-107) mmol/L Carbon Dioxide (22-30) mmol/L Anion Gap (5-15) MEQ/L BUN (7-17) mg/dL Creatinine (0.52-1.04) mg/dL Estimated GFR ML/MIN Glucose (74-106) mg/dL Calcium (8.4-10.2) mg/dL Total Bilirubin (0.2-1.3) mg/dL AST (14-36) U/L ALT (0-35) U/L Alkaline Phosphatase (38-126) U/L Serum Total Protein (6.3-8.2) g/dL Albumin (3.5-5.0) g/dL Lipase (23-300) U/L Urine Color YELLOW (YELLOW) Urine Appearance CLEAR (CLEAR) Urine pH 5.0 (5-6) Ur Specific [place] 1.009 (1.005-1.025) Urine Protein NEGATIVE (Negative) Urine Ketones NEGATIVE (NEGATIVE) Urine Blood NEGATIVE (0-5) Manohar/ul Urine Nitrite NEGATIVE (NEGATIVE) Urine Bilirubin NEGATIVE (NEGATIVE) Urine Urobilinogen NEGATIVE (0-1) mg/dL Ur Leukocyte Esterase SMALL (NEGATIVE) Urine WBC (Auto) 0-2 (0-5) /HPF Urine RBC (Auto) 0-2 (0-2) /HPF U Hyaline Cast (Auto) 11-25 (0-2) /LPF U Epithel Cells (Auto) RARE (FEW) /HPF Urine Bacteria (Auto) RARE (NEGATIVE) /HPF Urine Mucus (Auto) SLIGHT (NEGATIVE) /HPF Urine Culture Reflexed NO (NO) Urine Glucose NEGATIVE (NEGATIVE) mg/dL Influenza Type A Ag NEGATIVE (NEGATIVE) Influenza Type B Ag NEGATIVE (NEGATIVE) RSV (PCR) NEGATIVE (Negative) SARS-CoV-2 (PCR) NEGATIVE (NEGATIVE) ABO Group Rh Factor Antibody Screen (NEGATIVE) Crossmatch COMPATIBLE (COMPATIBLE) 05/27/21 05/27/21 05/27/21 Range/Units 13:59 13:55 13:48 WBC (4.0-10.5) K/mm3 RBC (4.1-5.4) M/mm3 Hgb (12.0-16.0) gm/dl Hct (35-47) % MCV (78-100) fl MCH (26-32) pg MCHC (32-36) g/dl RDW (11.5-14.0) % Plt Count (150-450) K/mm3 MPV (7.5-11.0) fl Sodium 136 L (137-145) mmol/L Potassium 4.3 (3.5-5.1) mmol/L Chloride 105 (98-107) mmol/L Carbon Dioxide 21 L (22-30) mmol/L Anion Gap 14.3 (5-15) MEQ/L BUN 11 (7-17) mg/dL Creatinine 0.87 (0.52-1.04) mg/dL Estimated GFR > 60.0 ML/MIN Glucose 124 H (74-106) mg/dL Calcium 9.2 (8.4-10.2) mg/dL Total Bilirubin 0.30 (0.2-1.3) mg/dL AST 22 (14-36) U/L ALT 14 (0-35) U/L Alkaline Phosphatase 85 (38-126) U/L Serum Total Protein 7.1 (6.3-8.2) g/dL Albumin 4.5 (3.5-5.0) g/dL Lipase 122 (23-300) U/L Urine Color (YELLOW) Urine Appearance (CLEAR) Urine pH (5-6) Ur Specific [place] (1.005-1.025) Urine Protein (Negative) Urine Ketones (NEGATIVE) Urine Blood (0-5) Manohar/ul Urine Nitrite (NEGATIVE) Urine Bilirubin (NEGATIVE) Urine Urobilinogen (0-1) mg/dL Ur Leukocyte Esterase (NEGATIVE) Urine WBC (Auto) (0-5) /HPF Urine RBC (Auto) (0-2) /HPF U Hyaline Cast (Auto) (0-2) /LPF U Epithel Cells (Auto) (FEW) /HPF Urine Bacteria (Auto) (NEGATIVE) /HPF Urine Mucus (Auto) (NEGATIVE) /HPF Urine Culture Reflexed (NO) Urine Glucose (NEGATIVE) mg/dL Influenza Type A Ag (NEGATIVE) Influenza Type B Ag (NEGATIVE) RSV (PCR) (Negative) SARS-CoV-2 (PCR) (NEGATIVE) ABO Group O Rh Factor POSITIVE Antibody Screen NEGATIVE (NEGATIVE) Crossmatch COMPATIBLE (COMPATIBLE) 05/27/21 Range/Units 13:48 WBC 6.9 (4.0-10.5) K/mm3 RBC 2.89 L (4.1-5.4) M/mm3 Hgb 7.0 L (12.0-16.0) gm/dl Hct 24.6 L (35-47) % MCV 85.1 (78-100) fl MCH 24.2 L (26-32) pg MCHC 28.5 L (32-36) g/dl RDW 19.3 H (11.5-14.0) % Plt Count 406 (150-450) K/mm3 MPV 9.6 (7.5-11.0) fl Sodium (137-145) mmol/L Potassium (3.5-5.1) mmol/L Chloride (98-107) mmol/L Carbon Dioxide (22-30) mmol/L Anion Gap (5-15) MEQ/L BUN (7-17) mg/dL Creatinine (0.52-1.04) mg/dL Estimated GFR ML/MIN Glucose (74-106) mg/dL Calcium (8.4-10.2) mg/dL Total Bilirubin (0.2-1.3) mg/dL AST (14-36) U/L ALT (0-35) U/L Alkaline Phosphatase (38-126) U/L Serum Total Protein (6.3-8.2) g/dL Albumin (3.5-5.0) g/dL Lipase (23-300) U/L Urine Color (YELLOW) Urine Appearance (CLEAR) Urine pH (5-6) Ur Specific [place] (1.005-1.025) Urine Protein (Negative) Urine Ketones (NEGATIVE) Urine Blood (0-5) Manohar/ul Urine Nitrite (NEGATIVE) Urine Bilirubin (NEGATIVE) Urine Urobilinogen (0-1) mg/dL Ur Leukocyte Esterase (NEGATIVE) Urine WBC (Auto) (0-5) /HPF Urine RBC (Auto) (0-2) /HPF U Hyaline Cast (Auto) (0-2) /LPF U Epithel Cells (Auto) (FEW) /HPF Urine Bacteria (Auto) (NEGATIVE) /HPF Urine Mucus (Auto) (NEGATIVE) /HPF Urine Culture Reflexed (NO) Urine Glucose (NEGATIVE) mg/dL Influenza Type A Ag (NEGATIVE) Influenza Type B Ag (NEGATIVE) RSV (PCR) (Negative) SARS-CoV-2 (PCR) (NEGATIVE) ABO Group Rh Factor Antibody Screen (NEGATIVE) Crossmatch (COMPATIBLE) - Progress Progress: improved Progress Note: Case discussed with Dr. Delgado who is our on-call physician for the day. He accepts admission to observation. Covid test pending. Plan of care discussed with patient. She agrees to admission at [facility] for further evaluation and treatment. Patient is currently comfortable. She voices no other complaints at this time. Type and screen pending. Blood transfusion 2 units upon arrival of blood product 05/27/21 15:46 Covid test negative. Patient will be transferred to floor under the care of Dr. Delgado. General surgery on consult. We are awaiting return call. 05/27/21 16:[address]Servando: Yonatan Will see patient in: hospital (observation) Counseled pt/family regarding: lab results, diagnosis, rad results - Departure Departure Disposition: Observation Clinical Impression: Symptomatic anemia, GI bleed, Generalized weakness Condition: Stable Critical Care Time: No Referrals: GALINDO NEWELL [Primary Care Provider] - Follow up/PCP as directed
[2021-05-27 14:10] LABS: ALBUMIN 4.5 g/dL (3.5-5.0); ALKALINE PHOSPHATASE 85 U/L (38-126); ANION GAP 14.3 MEQ/L (5-15); BLOOD UREA NITROGEN 11 mg/dL (7-17); CHLORIDE 105 mmol/L (98-107); Calcium 9.2 mg/dL (8.4-10.2); Carbon Dioxide 21 mmol/L (22-30); Creatinine 1 0.87 mg/dL (0.52-1.04); EST GLOMERULAR FILTRATION RATE > 60.0 ML/MIN; Glucose 124 mg/dL (74-106); Potassium 4.3 mmol/L (3.5-5.1); SGOT/AST 22 U/L (14-36); SGPT/ALT 14 U/L (0-35); SODIUM 136 mmol/L (137-145); Total Protein 7.1 g/dL (6.3-8.2)
--- NOTE | 2021-05-27 14:57 | XRAY ---
Indication: Abdomen pain. Multiple contiguous axial images obtained through the abdomen and pelvis without contrast. Comparison: None Lung bases demonstrate subsegmental atelectasis/scarring. No infiltrate or effusion. Heart not enlarged with partially visualized pacer leads. Previous gastric bypass surgery and hysterectomy. Noncontrasted stomach and bowel loops appear nonobstructed. Normal appendix. Right kidney demonstrates extrarenal pelvis. No free fluid/air. Remaining liver, gallbladder, pancreas, spleen, adrenal glands, kidneys, ureters, and bladder are unremarkable for noncontrast exam. Moderate scattered aortoiliac calcifications without AAA. Osseous structures intact with mild degenerative changes throughout the spine and both hips. Impression: 1. Bibasilar atelectasis/scarring, scattered arteriosclerotic calcifications, and chronic bony findings. 2. Remaining CT abdomen/pelvis without contrast exam is negative.
[2021-05-27] MEDS ORDERED: PROTONIX 40 MG IV*** 80 MG in Sodium Chloride 0.9% 500 ML 500 ML IV SCH (15:15)
[2021-05-27 15:55] LABS: Appearance CLEAR (CLEAR); Bacteria RARE /HPF (NEGATIVE); Bilirubin NEGATIVE (NEGATIVE); Blood NEGATIVE Ery/ul (0-5); Epithelial Cells RARE /HPF (FEW); Glucose NEGATIVE (NEGATIVE); Ketones NEGATIVE (NEGATIVE); Leukocyte Esterase SMALL (NEGATIVE); Mucus SLIGHT /HPF (NEGATIVE); Nitrite NEGATIVE (NEGATIVE); Protein,Urine Dip NEGATIVE (Negative); RBC 0-2 /HPF (0-2); Specific Gravity 1.009 (1.005-1.025); Urobilinogen NEGATIVE mg/dL (0-1); WBC 0-2 /HPF (0-5)
[2021-05-27 16:10] LABS: ABO TYPING O; Antibody Screen NEGATIVE (NEGATIVE); RH TYPING POSITIVE
[2021-05-27 16:12] LABS: CROSS MATCH (PRBC) COMPATIBLE (COMPATIBLE)
[2021-05-27 16:14] LABS: CROSS MATCH (PRBC) COMPATIBLE (COMPATIBLE)
[2021-05-27 16:37] LABS: INFLUENZA A NEGATIVE (NEGATIVE); INFLUENZA B NEGATIVE (NEGATIVE); RESPIRATORY SYNCTIAL VIRUS NEGATIVE (Negative); SARS-CoV-2 Xpert Express NEGATIVE (NEGATIVE)
[2021-05-27 17:14] LABS: ANISOCYTOSIS 1+; Eosinophil 2 % (0.00-3.0); Hypochromia 1+; Lymphocytes 18 % (24-44); Monocyte 5 % (0.0-12.0); Neutrophils 75 % (36.0-66.0); Platelet Estimate NORMAL (NORMAL); Total Cells Counted 100
[2021-05-27] MEDS ORDERED: Zofran 4 MG/2 ML VIAL IV PRN (17:20)
[2021-05-27] MEDS ORDERED: MORPHINE SULFATE 2 MG INJ IV PRN (17:20)
[2021-05-27] MEDS ORDERED: HYDROCODONE-ACETAMIN 10-325 MG PO PRN (18:36)
[2021-05-27] MEDS ORDERED: Miscellaneous Medication Order MC ONE (19:53)
[2021-05-27] MEDS: Sodium Chloride 0.9% 1000 ML 1,000 ML IV SCH ×2 (19:58→21:11)
[2021-05-27] MEDS: PROTONIX 40 MG IV IV SCH (21:10)
[2021-05-27] MEDS ORDERED: Lopressor 50 MG PO ONE (22:00)
[2021-05-27] MEDS ORDERED: HUMALOG SQ PRN (22:00)
[2021-05-28 01:32] LABS: Hematocrit 29.9 % (35-47)
[2021-05-28 06:04] LABS: Absolute Neutrophil Ct (ANC) 3.01 (1.4-6.9); BASOPHIL % 0.6 % (0.0-0.4); Basophil (Absolute #) 0.03 (0-0.4); Eosinophil % 3.9 % (0.00-5.0); Hematocrit 31.7 % (35-47); Hemoglobin 9.2 gm/dl (12.0-16.0); Lymphocyte (Absolute #) 1.26 (1.0-4.6); Lymphocytes % 24.9 % (24.0-44.0); Mean Cell Volume 85.9 fl (78-100); Mean Corpuscular Hemoglobin 24.9 pg (26-32); Mean Platelet Volume 9.5 fl (7.5-11.0); Monocyte (Absolute #) 0.57 (0.0-1.3); Monocytes % 11.2 % (0.0-12.0); Neutrophil % 59.4 % (36.0-66.0); Platelet Count 322 K/mm3 (150-450); Red Blood Count 3.69 M/mm3 (4.1-5.4); Red Cell Distribution Width 18.2 % (11.5-14.0); White Blood Count 5.1 K/mm3 (4.0-10.5)
[2021-05-28] MEDS ORDERED: [UNRECOGNIZED DRUG - REMARK] MC ONE (06:15)
[2021-05-28 06:57] LABS: ALBUMIN 3.7 g/dL (3.5-5.0); ALKALINE PHOSPHATASE 69 U/L (38-126); BLOOD UREA NITROGEN 8 mg/dL (7-17); Calcium 8.7 mg/dL (8.4-10.2); Carbon Dioxide 23 mmol/L (22-30); Creatinine 1 0.73 mg/dL (0.52-1.04); EST GLOMERULAR FILTRATION RATE > 60.0 ML/MIN; Glucose 104 mg/dL (74-106); Potassium 3.9 mmol/L (3.5-5.1); SGOT/AST 22 U/L (14-36); SGPT/ALT 12 U/L (0-35); SODIUM 139 mmol/L (137-145)
[2021-05-28 06:59] LABS: CHLORIDE 109 mmol/L (98-107)
[2021-05-28 07:05] LABS: ANION GAP 10.9 MEQ/L (5-15)
--- NOTE | 2021-05-28 08:54 | PCM.HP ---
History of Present Illness - Chief Complaint Chief Complaint: GI BLEED History of Present Illness: is a 65 year old female patient of Dr London, she came to the ER after she was instructed to come when an oupatient lab revealed a hemoglobin of around 7. She has had fatigue and abdominal cramping with intermittent black/tarry stools for the last month. She has a history of gastric bypass in [place], unsure of the name of her surgeon. Following surgery had an episode of upper GI bleeding cared for at [facility] several years ago, she is uncertain on details. - Review of Systems Constitutional: Fatigue Respiratory: No Cough, No Short Of Breath Cardiac: No Chest Pain, No Edema, No Syncope Abdominal/Gastrointestinal: Abdominal Pain, Melena, No Nausea, No Vomiting, No Diarrhea, No Constipation, No Hematochezia Genitourinary Symptoms: No Dysuria Skin: No Rash All Other Systems: Reviewed and Negative Medications & Allergies Home Medications: Home Medication List Aspirin 81 gm Chew [Baby Aspirin 81 mg Chew] 81 mg PO DAILY 06/16/19 [History Confirmed 05/27/21] Hydrocodone/Acetaminophen [Hydrocodone-Acetamin 10-325 mg] 10 - 325 mg PO Q6H PRN PRN 06/16/19 [History Confirmed 05/27/21] Montelukast Sodium 10 mg [Singulair 10 MG] 10 mg PO DAILY 06/16/19 [History Confirmed 05/27/21] Amlodipine Besylate 5 mg [Norvasc 5 mg] 5 mg PO DAILY 05/27/21 [History Confirmed 05/27/21] Benazepril HCl 40 mg PO DAILY 05/27/21 [History Confirmed 05/27/21] Fenofibrate Nanocrystallized [Fenofibrate] 48 mg PO DAILY 05/27/21 [History Confirmed 05/27/21] Furosemide 40 mg [Lasix 40 MG] 40 mg PO DAILY 05/27/21 [History Confirmed 05/27/21] Glimepiride 2 mg [Amaryl 2 MG] 1.5 tablet PO DAILY 05/27/21 [History Confirmed 05/27/21] Metformin HCl 500 mg [Glucophage 500 MG] 500 mg PO BIDWM 05/27/21 [History Confirmed 05/27/21] Metoprolol Tartrate 50 mg [Lopressor 50 MG] 50 mg PO BID 05/27/21 [History Confirmed 05/27/21] Prasugrel HCl 10 mg PO DAILY 05/27/21 [History Confirmed 05/27/21] Simvastatin 40 mg PO DAILY 05/27/21 [History Confirmed 05/27/21] Allergies/Adverse Reactions: Allergies Allergy/AdvReac Type Severity Reaction Status Date / Time levofloxacin [From [facility]] Allergy Verified 05/27/21 13:46 shellfish derived Allergy Verified 05/27/21 13:46 - Past Medical History Past Medical History: Yes Neurological History: Stroke ENT History: Other Cardiac History: High Cholesterol, Hypertension Respiratory History: No Pertinent History Endocrine Medical History: Diabetes Type I Musculoskelatal History: Arthritis, Fibromyalgia GI Medical History: GI Bleed History: No Pertinent History Pyscho-Social History: No Pertinent History Reproductive Disorders: No Pertinent History - Female History Are you now?: No - Past Surgical History Past Surgical History: Yes Neuro Surgical History: No Pertinent History Cardiac History: CABG, Cardiac Catheterization, Cardiac Stent, Pacemaker Respiratory Surgery: No Pertinent History GI Surgical History: No Pertinent History Genitourinary Surgical Hx: No Pertinent History Musculskeletal Surgical Hx: Orthopedic Surgery Female Surgical History: Hysterectomy Other Surgical History: INTRAOCULAR INJECTIONS, LEFT ROTATOR CUFF SURGERY - Social History Smoking Status: Former smoker Exposure to second hand smoke: Yes Alcohol: Rarely Drug Use: none - Physical Exam Vital Signs: Vital Signs - 24 hr Temp Pulse Resp BP Pulse Ox 05/28/21 07:27 98.1 F 64 18 119/66 98 05/28/21 04:00 97.2 F 60 20 123/57 93 L 05/28/21 00:00 97.3 F 62 164/70 95 05/27/21 20:00 97.9 F 73 18 150/65 97 05/27/21 18:00 98.4 F 66 18 147/67 99 05/27/21 17:00 68 16 165/85 99 05/27/21 16:58 99 05/27/21 16:00 60 14 135/55 100 05/27/21 15:28 60 22 125/68 100 05/27/21 14:27 65 20 128/81 100 05/27/21 13:34 97.0 F 74 161/149 99 General Appearance: no apparent distress, alert Neurologic Exam: alert, oriented x 3, cooperative, normal mood/affect, nml cerebellar function, nml station & gait, sensation nml, No motor deficits Eye Exam: PERRL/EOMI, eyes nml inspection Respiratory Exam: normal breath sounds, lungs clear, No respiratory distress Cardiovascular Exam: regular rate/rhythm, normal heart sounds, normal peripheral pulses Gastrointestinal/Abdomen Exam: soft, normal bowel sounds, No tenderness, No mass Extremity Exam: normal inspection, normal range of motion, pelvis stable Skin Exam: normal color, warm, dry, No rash Results - Labs Lab/Micro Results: Lab Results-Last 24 Hours 05/27/21 05/27/21 05/27/21 Range/Units 13:48 13:48 13:48 WBC 6.9 (4.0-10.5) K/mm3 RBC 2.89 L (4.1-5.4) M/mm3 Hgb 7.0 L (12.0-16.0) gm/dl Hct 24.6 L (35-47) % MCV 85.1 (78-100) fl MCH 24.2 L (26-32) pg MCHC 28.5 L (32-36) g/dl RDW 19.3 H (11.5-14.0) % Plt Count 406 (150-450) K/mm3 MPV 9.6 (7.5-11.0) fl Gran % (36.0-66.0) % Eos # (Auto) (0-0.5) Absolute Lymphs (auto) (1.0-4.6) Absolute Monos (auto) (0.0-1.3) Lymphocytes % (24.0-44.0) % Monocytes % (0.0-12.0) % Eosinophils % (0.00-5.0) % Basophils % (0.0-0.4) % Absolute Granulocytes (1.4-6.9) Segmented Neutrophils 75 H (36.0-66.0) % Lymphocytes (Manual) 18 L (24-44) % Monocytes (Manual) 5 (0.0-12.0) % Eosinophils (Manual) 2 (0.00-3.0) % Basophils # (0-0.4) Hypochromia 1+ Platelet Estimate NORMAL (NORMAL) RBC Morphology ABNORMAL Anisocytosis 1+ Sodium 136 L (137-145) mmol/L Potassium 4.3 (3.5-5.1) mmol/L Chloride 105 (98-107) mmol/L Carbon Dioxide 21 L (22-30) mmol/L Anion Gap 14.3 (5-15) MEQ/L BUN 11 (7-17) mg/dL Creatinine 0.87 (0.52-1.04) mg/dL Estimated GFR > 60.0 ML/MIN Glucose 124 H (74-106) mg/dL POC Glucometer (74 to 106) mg/dL Hemoglobin A1c 6.86 H (4.5-6.0) % Calcium 9.2 (8.4-10.2) mg/dL Total Bilirubin 0.30 (0.2-1.3) mg/dL AST 22 (14-36) U/L ALT 14 (0-35) U/L Alkaline Phosphatase 85 (38-126) U/L Serum Total Protein 7.1 (6.3-8.2) g/dL Albumin 4.5 (3.5-5.0) g/dL Lipase (23-300) U/L Urine Color (YELLOW) Urine Appearance (CLEAR) Urine pH (5-6) Ur Specific [place] (1.005-1.025) Urine Protein (Negative) Urine Ketones (NEGATIVE) Urine Blood (0-5) Manohar/ul Urine Nitrite (NEGATIVE) Urine Bilirubin (NEGATIVE) Urine Urobilinogen (0-1) mg/dL Ur Leukocyte Esterase (NEGATIVE) Urine WBC (Auto) (0-5) /HPF Urine RBC (Auto) (0-2) /HPF U Hyaline Cast (Auto) (0-2) /LPF U Epithel Cells (Auto) (FEW) /HPF Urine Bacteria (Auto) (NEGATIVE) /HPF Urine Mucus (Auto) (NEGATIVE) /HPF Urine Culture Reflexed (NO) Urine Glucose (NEGATIVE) mg/dL Influenza Type A Ag (NEGATIVE) Influenza Type B Ag (NEGATIVE) RSV (PCR) (Negative) SARS-CoV-2 (PCR) (NEGATIVE) ABO Group Rh Factor Antibody Screen (NEGATIVE) Crossmatch (COMPATIBLE) 05/27/21 05/27/21 05/27/21 Range/Units 13:55 13:59 14:00 WBC (4.0-10.5) K/mm3 RBC (4.1-5.4) M/mm3 Hgb (12.0-16.0) gm/dl Hct (35-47) % MCV (78-100) fl MCH (26-32) pg MCHC (32-36) g/dl RDW (11.5-14.0) % Plt Count (150-450) K/mm3 MPV (7.5-11.0) fl Gran % (36.0-66.0) % Eos # (Auto) (0-0.5) Absolute Lymphs (auto) (1.0-4.6) Absolute Monos (auto) (0.0-1.3) Lymphocytes % (24.0-44.0) % Monocytes % (0.0-12.0) % Eosinophils % (0.00-5.0) % Basophils % (0.0-0.4) % Absolute Granulocytes (1.4-6.9) Segmented Neutrophils (36.0-66.0) % Lymphocytes (Manual) (24-44) % Monocytes (Manual) (0.0-12.0) % Eosinophils (Manual) (0.00-3.0) % Basophils # (0-0.4) Hypochromia Platelet Estimate (NORMAL) RBC Morphology Anisocytosis Sodium (137-145) mmol/L Potassium (3.5-5.1) mmol/L Chloride (98-107) mmol/L Carbon Dioxide (22-30) mmol/L Anion Gap (5-15) MEQ/L BUN (7-17) mg/dL Creatinine (0.52-1.04) mg/dL Estimated GFR ML/MIN Glucose (74-106) mg/dL POC Glucometer (74 to 106) mg/dL Hemoglobin A1c (4.5-6.0) % Calcium (8.4-10.2) mg/dL Total Bilirubin (0.2-1.3) mg/dL AST (14-36) U/L ALT (0-35) U/L Alkaline Phosphatase (38-126) U/L Serum Total Protein (6.3-8.2) g/dL Albumin (3.5-5.0) g/dL Lipase 122 (23-300) U/L Urine Color YELLOW (YELLOW) Urine Appearance CLEAR (CLEAR) Urine pH 5.0 (5-6) Ur Specific [place] 1.009 (1.005-1.025) Urine Protein NEGATIVE (Negative) Urine Ketones NEGATIVE (NEGATIVE) Urine Blood NEGATIVE (0-5) Manohar/ul Urine Nitrite NEGATIVE (NEGATIVE) Urine Bilirubin NEGATIVE (NEGATIVE) Urine Urobilinogen NEGATIVE (0-1) mg/dL Ur Leukocyte Esterase SMALL (NEGATIVE) Urine WBC (Auto) 0-2 (0-5) /HPF Urine RBC (Auto) 0-2 (0-2) /HPF U Hyaline Cast (Auto) 11-25 (0-2) /LPF U Epithel Cells (Auto) RARE (FEW) /HPF Urine Bacteria (Auto) RARE (NEGATIVE) /HPF Urine Mucus (Auto) SLIGHT (NEGATIVE) /HPF Urine Culture Reflexed NO (NO) Urine Glucose NEGATIVE (NEGATIVE) mg/dL Influenza Type A Ag (NEGATIVE) Influenza Type B Ag (NEGATIVE) RSV (PCR) (Negative) SARS-CoV-2 (PCR) (NEGATIVE) ABO Group O Rh Factor POSITIVE Antibody Screen NEGATIVE (NEGATIVE) Crossmatch COMPATIBLE (COMPATIBLE) 05/27/21 05/27/21 05/27/21 Range/Units 14:00 15:50 20:33 WBC (4.0-10.5) K/mm3 RBC (4.1-5.4) M/mm3 Hgb (12.0-16.0) gm/dl Hct (35-47) % MCV (78-100) fl MCH (26-32) pg MCHC (32-36) g/dl RDW (11.5-14.0) % Plt Count (150-450) K/mm3 MPV (7.5-11.0) fl Gran % (36.0-66.0) % Eos # (Auto) (0-0.5) Absolute Lymphs (auto) (1.0-4.6) Absolute Monos (auto) (0.0-1.3) Lymphocytes % (24.0-44.0) % Monocytes % (0.0-12.0) % Eosinophils % (0.00-5.0) % Basophils % (0.0-0.4) % Absolute Granulocytes (1.4-6.9) Segmented Neutrophils (36.0-66.0) % Lymphocytes (Manual) (24-44) % Monocytes (Manual) (0.0-12.0) % Eosinophils (Manual) (0.00-3.0) % Basophils # (0-0.4) Hypochromia Platelet Estimate (NORMAL) RBC Morphology Anisocytosis Sodium (137-145) mmol/L Potassium (3.5-5.1) mmol/L Chloride (98-107) mmol/L Carbon Dioxide (22-30) mmol/L Anion Gap (5-15) MEQ/L BUN (7-17) mg/dL Creatinine (0.52-1.04) mg/dL Estimated GFR ML/MIN Glucose (74-106) mg/dL POC Glucometer 210 H (74 to 106) mg/dL Hemoglobin A1c (4.5-6.0) % Calcium (8.4-10.2) mg/dL Total Bilirubin (0.2-1.3) mg/dL AST (14-36) U/L ALT (0-35) U/L Alkaline Phosphatase (38-126) U/L Serum Total Protein (6.3-8.2) g/dL Albumin (3.5-5.0) g/dL Lipase (23-300) U/L Urine Color (YELLOW) Urine Appearance (CLEAR) Urine pH (5-6) Ur Specific [place] (1.005-1.025) Urine Protein (Negative) Urine Ketones (NEGATIVE) Urine Blood (0-5) Manohar/ul Urine Nitrite (NEGATIVE) Urine Bilirubin (NEGATIVE) Urine Urobilinogen (0-1) mg/dL Ur Leukocyte Esterase (NEGATIVE) Urine WBC (Auto) (0-5) /HPF Urine RBC (Auto) (0-2) /HPF U Hyaline Cast (Auto) (0-2) /LPF U Epithel Cells (Auto) (FEW) /HPF Urine Bacteria (Auto) (NEGATIVE) /HPF Urine Mucus (Auto) (NEGATIVE) /HPF Urine Culture Reflexed (NO) Urine Glucose (NEGATIVE) mg/dL Influenza Type A Ag NEGATIVE (NEGATIVE) Influenza Type B Ag NEGATIVE (NEGATIVE) RSV (PCR) NEGATIVE (Negative) SARS-CoV-2 (PCR) NEGATIVE (NEGATIVE) ABO Group Rh Factor Antibody Screen (NEGATIVE) Crossmatch COMPATIBLE (COMPATIBLE) 05/28/21 05/28/21 05/28/21 Range/Units 01:25 06:00 06:00 WBC 5.1 (4.0-10.5) K/mm3 RBC 3.69 L (4.1-5.4) M/mm3 Hgb 9.0 L D 9.2 L (12.0-16.0) gm/dl Hct 29.9 L 31.7 L (35-47) % MCV 85.9 (78-100) fl MCH 24.9 L (26-32) pg MCHC 29.0 L (32-36) g/dl RDW 18.2 H (11.5-14.0) % Plt Count 322 (150-450) K/mm3 MPV 9.5 (7.5-11.0) fl Gran % 59.4 (36.0-66.0) % Eos # (Auto) 0.20 (0-0.5) Absolute Lymphs (auto) 1.26 (1.0-4.6) Absolute Monos (auto) 0.57 (0.0-1.3) Lymphocytes % 24.9 (24.0-44.0) % Monocytes % 11.2 (0.0-12.0) % Eosinophils % 3.9 (0.00-5.0) % Basophils % 0.6 (0.0-0.4) % Absolute Granulocytes 3.01 (1.4-6.9) Segmented Neutrophils (36.0-66.0) % Lymphocytes (Manual) (24-44) % Monocytes (Manual) (0.0-12.0) % Eosinophils (Manual) (0.00-3.0) % Basophils # 0.03 (0-0.4) Hypochromia Platelet Estimate (NORMAL) RBC Morphology Anisocytosis Sodium 139 (137-145) mmol/L Potassium 3.9 (3.5-5.1) mmol/L Chloride 109 H (98-107) mmol/L Carbon Dioxide 23 (22-30) mmol/L Anion Gap 10.9 (5-15) MEQ/L BUN 8 (7-17) mg/dL Creatinine 0.73 (0.52-1.04) mg/dL Estimated GFR > 60.0 ML/MIN Glucose 104 (74-106) mg/dL POC Glucometer (74 to 106) mg/dL Hemoglobin A1c (4.5-6.0) % Calcium 8.7 (8.4-10.2) mg/dL Total Bilirubin 0.40 (0.2-1.3) mg/dL AST 22 (14-36) U/L ALT 12 (0-35) U/L Alkaline Phosphatase 69 (38-126) U/L Serum Total Protein 6.0 L (6.3-8.2) g/dL Albumin 3.7 (3.5-5.0) g/dL Lipase (23-300) U/L Urine Color (YELLOW) Urine Appearance (CLEAR) Urine pH (5-6) Ur Specific [place] (1.005-1.025) Urine Protein (Negative) Urine Ketones (NEGATIVE) Urine Blood (0-5) Manohar/ul Urine Nitrite (NEGATIVE) Urine Bilirubin (NEGATIVE) Urine Urobilinogen (0-1) mg/dL Ur Leukocyte Esterase (NEGATIVE) Urine WBC (Auto) (0-5) /HPF Urine RBC (Auto) (0-2) /HPF U Hyaline Cast (Auto) (0-2) /LPF U Epithel Cells (Auto) (FEW) /HPF Urine Bacteria (Auto) (NEGATIVE) /HPF Urine Mucus (Auto) (NEGATIVE) /HPF Urine Culture Reflexed (NO) Urine Glucose (NEGATIVE) mg/dL Influenza Type A Ag (NEGATIVE) Influenza Type B Ag (NEGATIVE) RSV (PCR) (Negative) SARS-CoV-2 (PCR) (NEGATIVE) ABO Group Rh Factor Antibody Screen (NEGATIVE) Crossmatch (COMPATIBLE) 05/28/21 Range/Units 06:46 WBC (4.0-10.5) K/mm3 RBC (4.1-5.4) M/mm3 Hgb (12.0-16.0) gm/dl Hct (35-47) % MCV (78-100) fl MCH (26-32) pg MCHC (32-36) g/dl RDW (11.5-14.0) % Plt Count (150-450) K/mm3 MPV (7.5-11.0) fl Gran % (36.0-66.0) % Eos # (Auto) (0-0.5) Absolute Lymphs (auto) (1.0-4.6) Absolute Monos (auto) (0.0-1.3) Lymphocytes % (24.0-44.0) % Monocytes % (0.0-12.0) % Eosinophils % (0.00-5.0) % Basophils % (0.0-0.4) % Absolute Granulocytes (1.4-6.9) Segmented Neutrophils (36.0-66.0) % Lymphocytes (Manual) (24-44) % Monocytes (Manual) (0.0-12.0) % Eosinophils (Manual) (0.00-3.0) % Basophils # (0-0.4) Hypochromia Platelet Estimate (NORMAL) RBC Morphology Anisocytosis Sodium (137-145) mmol/L Potassium (3.5-5.1) mmol/L Chloride (98-107) mmol/L Carbon Dioxide (22-30) mmol/L Anion Gap (5-15) MEQ/L BUN (7-17) mg/dL Creatinine (0.52-1.04) mg/dL Estimated GFR ML/MIN Glucose (74-106) mg/dL POC Glucometer 112 H (74 to 106) mg/dL Hemoglobin A1c (4.5-6.0) % Calcium (8.4-10.2) mg/dL Total Bilirubin (0.2-1.3) mg/dL AST (14-36) U/L ALT (0-35) U/L Alkaline Phosphatase (38-126) U/L Serum Total Protein (6.3-8.2) g/dL Albumin (3.5-5.0) g/dL Lipase (23-300) U/L Urine Color (YELLOW) Urine Appearance (CLEAR) Urine pH (5-6) Ur Specific [place] (1.005-1.025) Urine Protein (Negative) Urine Ketones (NEGATIVE) Urine Blood (0-5) Manohar/ul Urine Nitrite (NEGATIVE) Urine Bilirubin (NEGATIVE) Urine Urobilinogen (0-1) mg/dL Ur Leukocyte Esterase (NEGATIVE) Urine WBC (Auto) (0-5) /HPF Urine RBC (Auto) (0-2) /HPF U Hyaline Cast (Auto) (0-2) /LPF U Epithel Cells (Auto) (FEW) /HPF Urine Bacteria (Auto) (NEGATIVE) /HPF Urine Mucus (Auto) (NEGATIVE) /HPF Urine Culture Reflexed (NO) Urine Glucose (NEGATIVE) mg/dL Influenza Type A Ag (NEGATIVE) Influenza Type B Ag (NEGATIVE) RSV (PCR) (Negative) SARS-CoV-2 (PCR) (NEGATIVE) ABO Group Rh Factor Antibody Screen (NEGATIVE) Crossmatch (COMPATIBLE) Accuchecks Date 05/27/21 Time 20:33 - Radiology Impressions Radiology Exams & Impressions: Radiology Procedures Category Date Time Status ABDOMEN AND PELVIS W/0 CONTRAS [CT] Stat Exams 05/27/21 14:00 Completed Assessment/Plan (1) GI bleed Current Visit: Yes Status: Acute Assessment & Plan: currently NPO, no evidence of active bleeding. continue IV PPI, surgery consult pending. Code(s): K92.2 - GASTROINTESTINAL HEMORRHAGE, UNSPECIFIED (2) Generalized weakness Current Visit: Yes Status: Acute Code(s): R53.1 - WEAKNESS (3) Symptomatic anemia Current Visit: Yes Status: Acute Assessment & Plan: hemoglobin improved to 9 after 2 units tranfusion. Code(s): D64.9 - ANEMIA, UNSPECIFIED (4) Diabetes Current Visit: Yes Status: Acute Code(s): E11.9 - TYPE 2 DIABETES MELLITUS WITHOUT COMPLICATIONS
--- NOTE | 2021-05-28 09:33 | CONS ---
CONSULT DATE: 05/27/2021 HISTORY: The patient is a 65-year-old female who came in with a hemoglobin of 6.[address] Delgado asked that we see her from the consult standpoint. CT abdomen and pelvis were unremarkable from the abdomen standpoint. She had some scarring in the lung bases. She has a prior history of bariatric surgery in the past. She is feeling weak. 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 She said she had endoscopy at [facility] in the past ten years or so ago and had a bleeding ulcer at that time, she said. She had some sort of intervention. PAST MEDICAL HISTORY: Fibromyalgia, arthritis in the past. Hypercholesterolemia. Hypertension in the past. PAST SURGICAL HISTORY: PICC line. Stent placement. Cardiac cath in the past. Hysterectomy in the past. MEDICATIONS: Aspirin, hydrocodone, montelukast, amlodipine, benazepril, Fenofibrate, furosemide, metformin, metoprolol, prasurgrel, simvastatin, glimepiride. ALLERGIES: NKDA. FAMILY HISTORY: Negative in regards to this problem. SOCIAL HISTORY: Former smoker. Rare alcohol use denies abuse. REVIEW OF SYSTEMS: Fourteen systems reviewed. No chest pain or palpitations. No significant abdominal pain. Just weak and has low hemoglobin. PHYSICAL EXAMINATION: GENERAL: No acute distress. HEENT: Sclera nonicteric. NECK: No JVD. CHEST: Equal excursion, nonlabored breathing. CVS: Regular rate and rhythm. ABDOMEN: Soft. No peritoneal signs. EXTREMITIES: No cyanosis. NEURO: Alert, moving extremities grossly symmetrically. PSYCH: Appropriate mood and affect. IMPRESSION: History of some anemia unclear etiology. She had prior bariatric surgery. It sounds like she may have had ulcer in the past. I am seeing this patient for Dr. Marino who is mission analyst for our group today. I think Dr. Mi may be doing a scope here later in the day tomorrow and will see if he has time to do an upper endoscopy. She is getting some blood now. It is too late to start a bowel prep. Her hemoglobin is stable. He could do an EGD and have her released. If she needs a lower scope down the road can consider that at that time. It is too late to start a bowel prep this evening. General risk of bleeding or infection, risk of bowel injury or perforation but not limited to, risk of anesthesia, sedation or aspiration. She is agreeable to the plan. Will see if Dr. Mi has some time to do an EGD on her tomorrow. Otherwise could have an outpatient colonoscopy down the road if she agrees to the plan. Again, Dr. Marino is mission analyst for our group today and will see if Dr. Mi has time for endoscopy as I will be out of town the next couple of days.
[2021-05-28] MEDS: Sodium Chloride 0.9% W/ 20 mEq KCl/LITER 1,000 ML IV SCH (09:36)
[2021-05-28] MEDS ORDERED: NORVASC 5 MG PO SCH (11:30)
[2021-05-28] MEDS ORDERED: Lotensin 10 MG PO SCH (11:30)
[2021-05-28] MEDS: Lopressor 50 MG PO SCH ×2 (13:11→21:13)
[2021-05-28] MEDS ORDERED: Lactated Ringers 1,000 ML IV ONE (15:54)
[2021-05-28] MEDS ORDERED: Lactated Ringers 1,000 ML IV SCH (16:30)
[2021-05-28] MEDS ORDERED: DIPRIVAN 200 MG/20 ML IV ONE (17:13)
[2021-05-28] MEDS: PROTONIX 40 MG IV IV SCH (21:13)
[2021-05-29] MEDS: Sodium Chloride 0.9% W/ 20 mEq KCl/LITER 1,000 ML IV SCH (04:59)
[2021-05-29 06:42] LABS: Absolute Neutrophil Ct (ANC) 3.23 (1.4-6.9); BASOPHIL % 0.9 % (0.0-0.4); Basophil (Absolute #) 0.05 (0-0.4); Eosinophil % 3.7 % (0.00-5.0); Hematocrit 31.2 % (35-47); Hemoglobin 9.2 gm/dl (12.0-16.0); Lymphocytes % 25.6 % (24.0-44.0); Mean Cell Volume 86.2 fl (78-100); Mean Corpuscular Hemoglobin 25.4 pg (26-32); Mean Corpuscular Hgb Concent. 29.5 g/dl (32-36); Mean Platelet Volume 9.4 fl (7.5-11.0); Monocyte (Absolute #) 0.58 (0.0-1.3); Monocytes % 10.6 % (0.0-12.0); Neutrophil % 59.2 % (36.0-66.0); Platelet Count 297 K/mm3 (150-450); Red Blood Count 3.62 M/mm3 (4.1-5.4); Red Cell Distribution Width 18.4 % (11.5-14.0); White Blood Count 5.5 K/mm3 (4.0-10.5)
[2021-05-29 07:02] LABS: ALBUMIN 3.6 g/dL (3.5-5.0); ALKALINE PHOSPHATASE 66 U/L (38-126); ANION GAP 9.9 MEQ/L (5-15); BLOOD UREA NITROGEN 8 mg/dL (7-17); CHLORIDE 110 mmol/L (98-107); Calcium 8.7 mg/dL (8.4-10.2); Carbon Dioxide 22 mmol/L (22-30); Creatinine 1 0.74 mg/dL (0.52-1.04); EST GLOMERULAR FILTRATION RATE > 60.0 ML/MIN; Glucose 91 mg/dL (74-106); MAGNESIUM 2.2 mg/dL (1.6-2.3); SGOT/AST 22 U/L (14-36); SGPT/ALT 11 U/L (0-35); SODIUM 138 mmol/L (137-145); Total Protein 5.9 g/dL (6.3-8.2)
--- NOTE | 2021-05-29 08:06 | PCM.DS ---
Discharge Summary Date of Admission: 05/27/21 17:17 Admitting Physician: FAISAL BALL Consults: Consults on Case 05/27/21 17:20 Consult Surgery ROUTINE Primary Care Provider: GALINDO NEWELL Allergies Allergies levofloxacin [From Levaquin] Allergy (Verified 05/27/21 13:46) shellfish derived Allergy (Verified 05/27/21 13:46) Hospital Summary - Hospital Course Hospital Course: patient was admitted with upper GI, anemia present and received 2 units packed rbc's. hx melena and prior gastric bypass suggestive of upper GI source, surgery did EGD on 05/28 that showed healing esophageal erosion. h/h is stable now and she is tolerating regular diet with improvement in her abdominal cramping and symptoms. feels good and requesting discharge today. - Vitals & Intake/Output Vital Signs: Vital Signs Temperature 97.8 F 05/29/21 04:00 Pulse Rate 61 05/29/21 04:00 Respiratory Rate 18 05/29/21 04:00 Blood Pressure 126/60 05/29/21 04:00 O2 Sat by Pulse Oximetry 97 05/29/21 04:00 Intake & Output: Intake & Output 05/26/21 05/27/21 05/28/21 05/29/21 11:59 11:59 11:59 11:59 Intake Total 1502 2509 Output Total 1800 360 Balance -298 2149 Weight 95.6 kg 95.6 kg - Lab Result Diagrams: 05/29/21 04:00 05/29/21 04:00 Lab Results-Last 24 Hrs: Lab Results-Last 24 Hours 05/28/21 05/28/21 05/28/21 Range/Units 11:20 16:11 20:50 WBC (4.0-10.5) K/mm3 RBC (4.1-5.4) M/mm3 Hgb (12.0-16.0) gm/dl Hct (35-47) % MCV (78-100) fl MCH (26-32) pg MCHC (32-36) g/dl RDW (11.5-14.0) % Plt Count (150-450) K/mm3 MPV (7.5-11.0) fl Gran % (36.0-66.0) % Eos # (Auto) (0-0.5) Absolute Lymphs (auto) (1.0-4.6) Absolute Monos (auto) (0.0-1.3) Lymphocytes % (24.0-44.0) % Monocytes % (0.0-12.0) % Eosinophils % (0.00-5.0) % Basophils % (0.0-0.4) % Absolute Granulocytes (1.4-6.9) Basophils # (0-0.4) Sodium (137-145) mmol/L Potassium (3.5-5.1) mmol/L Chloride (98-107) mmol/L Carbon Dioxide (22-30) mmol/L Anion Gap (5-15) MEQ/L BUN (7-17) mg/dL Creatinine (0.52-1.04) mg/dL Estimated GFR ML/MIN Glucose (74-106) mg/dL POC Glucometer 116 H 105 237 H (74 to 106) mg/dL Calcium (8.4-10.2) mg/dL Magnesium (1.6-2.3) mg/dL Total Bilirubin (0.2-1.3) mg/dL AST (14-36) U/L ALT (0-35) U/L Alkaline Phosphatase (38-126) U/L Serum Total Protein (6.3-8.2) g/dL Albumin (3.5-5.0) g/dL 05/29/21 05/29/21 05/29/21 Range/Units 04:00 04:00 07:30 WBC 5.5 (4.0-10.5) K/mm3 RBC 3.62 L (4.1-5.4) M/mm3 Hgb 9.2 L (12.0-16.0) gm/dl Hct 31.2 L (35-47) % MCV 86.2 (78-100) fl MCH 25.4 L (26-32) pg MCHC 29.5 L (32-36) g/dl RDW 18.4 H (11.5-14.0) % Plt Count 297 (150-450) K/mm3 MPV 9.4 (7.5-11.0) fl Gran % 59.2 (36.0-66.0) % Eos # (Auto) 0.20 (0-0.5) Absolute Lymphs (auto) 1.40 (1.0-4.6) Absolute Monos (auto) 0.58 (0.0-1.3) Lymphocytes % 25.6 (24.0-44.0) % Monocytes % 10.6 (0.0-12.0) % Eosinophils % 3.7 (0.00-5.0) % Basophils % 0.9 (0.0-0.4) % Absolute Granulocytes 3.23 (1.4-6.9) Basophils # 0.05 (0-0.4) Sodium 138 (137-145) mmol/L Potassium 4.0 (3.5-5.1) mmol/L Chloride 110 H (98-107) mmol/L Carbon Dioxide 22 (22-30) mmol/L Anion Gap 9.9 (5-15) MEQ/L BUN 8 (7-17) mg/dL Creatinine 0.74 (0.52-1.04) mg/dL Estimated GFR > 60.0 ML/MIN Glucose 91 (74-106) mg/dL POC Glucometer 100 (74 to 106) mg/dL Calcium 8.7 (8.4-10.2) mg/dL Magnesium 2.2 (1.6-2.3) mg/dL Total Bilirubin 0.30 (0.2-1.3) mg/dL AST 22 (14-36) U/L ALT 11 (0-35) U/L Alkaline Phosphatase 66 (38-126) U/L Serum Total Protein 5.9 L (6.3-8.2) g/dL Albumin 3.6 (3.5-5.0) g/dL - Radiology Exams Ordered Rad Exams-Entire Visit: Radiology Procedures Category Date Time Status ABDOMEN AND PELVIS W/0 CONTRAS [CT] Stat Exams 05/27/21 14:00 Completed Discharge Exam General Appearance: no apparent distress, obese Neurologic Exam: alert, oriented x 3 Respiratory Exam: normal breath sounds, lungs clear, No respiratory distress Cardiovascular Exam: regular rate/rhythm, normal heart sounds Gastrointestinal/Abdomen Exam: soft, No tenderness, No mass Extremity Exam: normal inspection, normal range of motion Final Diagnosis/Problem List - Final Discharge Diagnosis/Problem (1) GI bleed Current Visit: Yes Status: Acute Assessment & Plan: h/h stable, continue PPI Code(s): K92.2 - GASTROINTESTINAL HEMORRHAGE, UNSPECIFIED (2) Esophageal erosions Current Visit: Yes Status: Acute Code(s): K22.10 - ULCER OF ESOPHAGUS WITHOUT BLEEDING (3) Generalized weakness Current Visit: Yes Status: Acute Code(s): R53.1 - WEAKNESS (4) Symptomatic anemia Current Visit: Yes Status: Acute Code(s): D64.9 - ANEMIA, UNSPECIFIED (5) Diabetes Current Visit: Yes Status: Acute Code(s): E11.9 - TYPE 2 DIABETES MELLITUS WITHOUT COMPLICATIONS - Discharge Disposition: Home, Self-Care Condition: Stable Prescriptions: New PANTOPRAZOLE 40 mg Tablet [Protonix 40MG Tablet] 40 mg PO QPM #30 tab Continue Montelukast Sodium 10 mg [Singulair 10 MG] 10 mg PO DAILY Hydrocodone/Acetaminophen [Hydrocodone-Acetamin 10-325 mg^^^] 10 - 325 mg PO Q6H PRN PRN PRN Reason: Pain Metoprolol Tartrate 50 mg [Lopressor 50 MG] 50 mg PO BID Simvastatin 40 mg PO DAILY Furosemide 40 mg [Lasix 40 MG] 40 mg PO DAILY Benazepril HCl 40 mg PO DAILY Amlodipine Besylate 5 mg [Norvasc 5 mg] 5 mg PO DAILY Metformin HCl 500 mg [Glucophage 500 MG] 500 mg PO BIDWM Fenofibrate Nanocrystallized [Fenofibrate] 48 mg PO DAILY Glimepiride 2 mg [Amaryl 2 MG] 1.5 tablet PO DAILY Discontinued Aspirin 81 gm Chew [Baby Aspirin 81 mg Chew] 81 mg PO DAILY Prasugrel HCl 10 mg PO DAILY Additional Instructions: hold your aspirin and prasurgel, take pantoprazole as directed and keep your appointment with Dr Newell that is scheduled on 06/16/2021 Follow up with: GALINDO NEWELL [Primary Care Provider] -
[2021-05-29 08:23] VITALS: BP 126/57; PULSE 63; O2SAT 99
--- NOTE | 2021-05-29 09:10 | OP ---
SURGERY DATE/TIME: 05/28/2021 1719 PREOPERATIVE DIAGNOSIS: Anemia with fainting. POSTOPERATIVE DIAGNOSIS: Esophageal ulcer. PROCEDURE: EGD. SURGEON: Ashutosh Mi M.D. ANESTHESIA: MAC. COMPLICATIONS: None. CONDITION: Stable. INDICATION: The patient is seen at the bedside. 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 She came in with anemia with fainting. She has not had a colonoscopy in greater than 10 years. She probably should have one here in the near future. She certainly needs an EGD to evaluate her gastric bypass and for ulcer. DESCRIPTION OF PROCEDURE: She is taken to endoscopy. MAC sedation provided. Scope introduced. Pharyngoesophageal junction normal. Esophagus normal. Down in the lower esophagus there was a vertical ulcer 4 cm long 1.5 cm wide. It looks like it had been very deep, had fibrinous material on it. It was certainly in middle to late stage of healing. It has not actively bled for some while this I believe is certainly is the cause of her bleeding. The gastric mouth is normal. The anastomosis is normal and the efferent loop is normal. Scope withdrawn. The patient tolerated the procedure satisfactorily. As noted, the patient should get an elective colonoscopy in the near future.
[2021-05-29] MEDS ORDERED: NON-FORMULARY ITEM (Benazepril Hcl [Benazepril Hcl] 40 MG Tablet) PO SCH (10:00)
== END 2021-05-29 09:18 | disposition home or self-care (01) ==
LOC: ED 13:26 → MED SURG 17:17
PROVIDERS: ADMIT Family Medicine; ATTEND Family Medicine
DX: K92.2 Gastrointestinal hemorrhage, unspecified (principal); K22.10 Ulcer of esophagus without bleeding; R53.1 Weakness; D64.9 Anemia, unspecified; E11.9 Type 2 diabetes mellitus without complications; I10 Essential (primary) hypertension; Z79.899 Other long term (current) drug therapy; Z20.828 Contact with and (suspected) exposure to other viral communicable diseases; Z98.84 Bariatric surgery status
CPT/HCPCS: 0241U; 36000; 36415; 36430; 43235; 74176; 80053; 81001; 82947; 83036; 83690; 83735; 85014; 85018; 85025; 86850; 86900; 86901; 86922; 93268; 99285; G0378; P9016; J1817; J2704; A9270-GY

== ENCOUNTER 2022-05-24 08:57 | Emergency (ER) | payer MEDICARE ==
--- NOTE | 2022-05-24 10:13 | XRAY ---
Indication: Pain following injury 4 days ago. Comparison: None 3 portable views right foot demonstrates osteopenia, tiny posterior/small plantar heel spurs, tiny navicular accessory ossicle, and scattered vascular calcifications. No other bony, articular, or soft tissue abnormalities.
--- NOTE | 2022-05-24 10:24 | ERPHSYRPT ---
- History of Present Illness Time Seen by Provider: 05/24/22 10:23 Source: patient Exam Limitations: no limitations Patient Subjective Stated Complaint: Pt stepped in a muddy hole on Tuesday with her right foot and was unable to get her foot out and she had to crawl out of it, she is unsure if she injured herself during that time but she is unable to walk on the foot without extreme pain Triage Nursing Assessment: Pt brought to the ER by her son, hypertensive, rates pain as a 7/10, no bruising noted to foot, denies any previous injuries or surgeries to foot, pulses and cap refill normal, doesn't appear to be in any distress Physician History: Patient is a 66-year-old female presents emergency department for evaluation of pain to her right foot. Patient states she was walking on a grassy/muddy area when she twisted her foot. Injury occurred 3 days ago. Pain described as an ache that is localized to the lateral aspect of her forefoot. Pain worse with weightbearing pain improved with rest. No other injuries reported. No BHT or LOC. No neck pain. Cervical spine cleared clinically. Patient has been ambulating on her right foot in spite of the pain. Patient denies associated back hip knee ankle pain. Patient voices no other complaints or concerns at this time. Portions of this note were created with voice recognition technology. There may be grammatical, spelling, punctuation or sound alike errors Method of Injury: twisted Occurred: days ago (3 days ago) Quality: constant Severity of Pain-Max: moderate Severity of Pain-Current: mild Lower Extremities Pain: foot: right Modifying Factors: Improves With: nothing Associated Symptoms: none Allergies/Adverse Reactions: levofloxacin [From Levaquin] Allergy (Verified 05/24/22 09:12) shellfish derived Allergy (Verified 05/24/22 09:12) Home Medications: Hydrocodone/Acetaminophen [Hydrocodone-Acetamin 10-325 mg^^^] 10 - 325 mg PO Q6H PRN PRN 06/16/19 [History] Montelukast Sodium 10 mg [Singulair 10 MG] 10 mg PO DAILY 06/16/19 [History] Amlodipine Besylate 5 mg [Norvasc 5 mg] 5 mg PO DAILY 05/27/21 [History] Benazepril HCl 40 mg PO DAILY 05/27/21 [History] Fenofibrate Nanocrystallized [Fenofibrate] 48 mg PO DAILY 05/27/21 [History] Furosemide 40 mg [Lasix 40 MG] 40 mg PO DAILY 05/27/21 [History] Glimepiride 2 mg [Amaryl 2 MG] 1.5 tablet PO DAILY 05/27/21 [History] Metformin HCl 500 mg [Glucophage 500 MG] 500 mg PO BIDWM 05/27/21 [History] Metoprolol Tartrate 50 mg [Lopressor 50 MG] 50 mg PO BID 05/27/21 [History] Simvastatin 40 mg PO DAILY 05/27/21 [History] Zolpidem Tartrate 10 mg [Ambien 10 MG] 10 mg PO HS 05/24/22 [History] Hx Tetanus, Diphtheria Vaccination/Date Given: No Hx Influenza Vaccination/Date Given: Yes Hx Pneumococcal Vaccination/Date Given: Yes Travel Risk - International Travel Have you traveled outside of the country in past 3 weeks: No - Coronavirus Screening Are you exhibiting any of the following symptoms?: No Close contact with a COVID-19 positive Pt in past 14-21 Days: No - Vaccine Status Have you recieved a Covid-19 vaccination: Yes Target Setter: Moderna - Vaccination Dates Date of 2cond Vaccination (if applicable): 04/22/21. - Review of Systems Constitutional: No Symptoms, No Fever, No Chills Eyes: No Symptoms Ears, Nose, & Throat: No Symptoms Respiratory: No Symptoms, No Cough, No Dyspnea Cardiac: No Symptoms, No Chest Pain, No Edema, No Syncope Abdominal/Gastrointestinal: No Symptoms, No Abdominal Pain, No Nausea, No Vomiting, No Diarrhea Genitourinary Symptoms: No Symptoms, No Dysuria Musculoskeletal: No Symptoms, No Back Pain, No Neck Pain Skin: No Symptoms, No Rash Neurological: No Symptoms, No Dizziness, No Focal Weakness, No Sensory Changes Psychological: No Symptoms Endocrine: No Symptoms Hematologic/Lymphatic: No Symptoms Immunological/Allergic: No Symptoms All Other Systems: Reviewed and Negative - Past Medical History Pertinent Past Medical History: Yes Neurological History: Stroke ENT History: Other Cardiac History: High Cholesterol, Hypertension Respiratory History: No Pertinent History Endocrine Medical History: Diabetes Type I Musculoskeletal History: Arthritis, Fibromyalgia GI Medical History: GI Bleed History: No Pertinent History Psycho-Social History: No Pertinent History Female Reproductive Disorders: No Pertinent History - Past Surgical History Past Surgical History: Yes Neuro Surgical History: No Pertinent History Cardiac: CABG, Cardiac Catheterization, Cardiac Stent, Pacemaker Respiratory: No Pertinent History Gastrointestinal: No Pertinent History Genitourinary: No Pertinent History Musculoskeletal: Orthopedic Surgery Female Surgical History: Hysterectomy Other Surgical History: INTRAOCULAR INJECTIONS, LEFT ROTATOR CUFF SURGERY - Social History Smoking Status: Former smoker Exposure to second hand smoke: Yes Drug Use: none Patient Lives Alone: No - Nursing Vital Signs Nursing Vital Signs: Initial Vital Signs Temperature 96.2 F 05/24/22 09:03 Pulse Rate 64 05/24/22 09:03 Blood Pressure 150/92 05/24/22 09:03 O2 Sat by Pulse Oximetry 99 05/24/22 09:03 Pain Scale Pain Intensity 7 - Physical Exam General Appearance: no apparent distress, alert Eyes, Ears, Nose, Throat Exam: normal ENT inspection, moist mucous membranes Neck Exam: non-tender, supple Cardiovascular/Respiratory Exam: chest non-tender, normal breath sounds, regular rate/rhythm, no respiratory distress Gastrointestinal/Abdominal Exam: non-tender, soft, guarding Back Exam: normal inspection, normal range of motion, No vertebral tenderness Hips Exam: bilateral: non-tender, normal inspection, normal range of motion, no evidence of injury Legs Exam: bilateral leg: non-tender, normal inspection, normal range of motion, no evidence of injury Knees Exam: bilateral knee: non-tender, normal inspection, normal range of motion, no evidence of injury Ankle Exam: bilateral ankle: non-tender, normal inspection, normal range of motion, no evidence of injury Foot Exam: right foot: pain, soft tissue tenderness, swelling, other (Right foot neurovascular intact distally. Compartments are soft. Cap refill less than 2 seconds. Tenderness to palpation along the dorsal and lateral aspect), left foot: non-tender, normal inspection, normal range of motion, no evidence of injury Neuro/Tendon Exam: normal sensation, normal motor functions Mental Status Exam: alert, oriented x 3, cooperative Skin Exam: normal color, warm, dry SpO2 Interpretation: normal SpO2: 99 O2 Delivery: Room Air - Course Nursing assessment & vital signs reviewed: Yes - Radiology Exams Foot X-ray Interpretation: Interpreted by me (No fracture dislocations. No soft tissue abnormalities. Osteopenia. Heel spur) Ordered Tests: Active Orders 24 hr Category Date Time Status FOOT (MINIMUM 3 VIEWS) Stat Exams 05/24/22 09:31 Completed - Progress Progress: improved Progress Note: Patient inclined pain medication. X-ray negative for acute pathology. Patient states she has a walker at home that she will use to unload her right foot. 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 She will follow-up with him. A orthopedic referral was given to patient. No indication for further work-up at this time. Will discharge home. Patient agrees to follow-up in the orthopedic clinic tomorrow as scheduled for further evaluation and monitoring of her right foot pain. Portions of this note were created with voice recognition technology. There may be grammatical, spelling, punctuation or sound alike errors 05/24/22 10:26 Counseled pt/family regarding: diagnosis, need for follow-up, rad results - Departure Departure Disposition: Home Clinical Impression: Foot sprain, Osteopenia, Foot pain, Heel spur Condition: Stable Critical Care Time: No Referrals: GALINDO NEWELL [Primary Care Provider] - Follow up/PCP as directed Additional Instructions: Discharge/Care Plan MARKUSCARLOZ DICKINSON was seen on 05/24/22 in the Emergency Room. The patient was counseled regarding Diagnosis,Lab results, Imaging studies, need for follow up and when to return to the Emergency Room. Prescriptions given: Discharge Note I have spoken with the patient and/or caregivers. I have explained the patient's condition, diagnosis and treatment plan based on the information available to me at this time. I have answered the patient's and/or caregiver's questions and addressed any concerns. The patient and/or caregivers have as good understanding of the patient's diagnosis, condition and treatment plan as can be expected at this point. The vital signs have been stable. The patient's condition is stable and appropriate for discharge from the emergency department. The patient will pursue further outpatient evaluation with the primary care physician or other designated or consulting physician as outlined in the discharge instructions. The patient and/or caregivers are agreeable to this plan of care and follow-up instructions have been explained in detail. The patient and/or caregivers have received these instruction. The patient/and or caregivers are aware that any significant change in condition or worsening of symptoms should prompt an immediate return to this or the closest emergency department or call 911. Outpatient Orders: Ortho Referral Time Frame: 1 Day, Facility: [facility], Location: ORTHO CLINIC
[2022-05-24 10:33] VITALS: BP 134/72; PULSE 63; O2SAT 98
== END 2022-05-24 10:40 | disposition home or self-care (01) ==
LOC: ED 08:57
DX: S93.601A Unspecified sprain of right foot, initial encounter (principal); X50.0XXA Overexertion from strenuous movement or load, initial encounter; Y93.01 Activity, walking, marching and hiking; M85.871 Other specified disorders of bone density and structure, right ankle and foot; M79.671 Pain in right foot; M77.31 Calcaneal spur, right foot; E78.5 Hyperlipidemia, unspecified; I10 Essential (primary) hypertension; E10.9 Type 1 diabetes mellitus without complications; Z79.84 Long term (current) use of oral hypoglycemic drugs; Z79.899 Other long term (current) drug therapy
CPT/HCPCS: 73630; 99283

== ENCOUNTER 2022-09-07 10:22 | Emergency (ER) | payer MEDICARE ==
--- NOTE | 2022-09-07 11:47 | XRAY ---
Indication: Low back pain 3 weeks. No known injury. Multiple contiguous axial images obtained through the lumbar spine. Sagittal and coronal reformatted images obtained. Comparison: June 18, 2020 Grossly stable mild L2-S1 broad-based disc bulge without spinal canal foraminal stenosis. Tiny L2-L3 degenerative vacuum disc phenomena. Facets are symmetric. Sagittal and coronal reformatted images again demonstrate normal lumbar alignment with vertebral body heights/disc spaces maintained. No acute compression fracture or subluxation. Visualized noncontrasted soft tissues again demonstrates mild scattered aortoiliac calcifications. Impression: 1. Again L2-S1 degenerative disc disease better evaluated with outpatient MRI. No obvious disc herniation or spinal canal stenosis. 2. Again incidental arteriosclerotic disease.
--- NOTE | 2022-09-07 11:50 | ERPHSYRPT ---
- History of Present Illness Time Seen by Provider: 09/07/22 10:40 Source: patient Exam Limitations: no limitations Patient Subjective Stated Complaint: pt here for lower left back pain that radiates to left hip for weeks now, no injury, no difficulty urinating Triage Nursing Assessment: pt alert, resp easy, skin w/d/p, walked in,able to undress, tender to paplate to left lower back. Physician History: Patient is a 67-year-old white female who has chronic back pain but is developed a localized area of pain in the left lower back which radiates into the left hip which has been present for several weeks she has not sought attention at this point. Timing/Duration: week(s) (Several) Method of Injury: unknown Quality: radiating, sharp, aching Back Pain Location: lumbar spine Back Pain Radiation: buttocks (Into left hip left buttocks) Severity of Pain-Max: moderate Severity of Pain-Current: moderate Modifying Factors: Improves With: movement Associated Symptoms: No loss of bowel control, No problems urinating Previous symptoms: same symptoms as today Allergies/Adverse Reactions: levofloxacin [From Levaquin] Allergy (Verified 09/07/22 10:32) shellfish derived Allergy (Verified 09/07/22 10:32) Home Medications: Hydrocodone/Acetaminophen [Hydrocodone-Acetamin 10-325 mg^^^] 10 - 325 mg PO Q6H PRN PRN 06/16/19 [History] Montelukast Sodium 10 mg [Singulair 10 MG] 10 mg PO DAILY 06/16/19 [History] Amlodipine Besylate 5 mg [Norvasc 5 mg] 5 mg PO DAILY 05/27/21 [History] Benazepril HCl 40 mg PO DAILY 05/27/21 [History] Fenofibrate Nanocrystallized [Fenofibrate] 48 mg PO DAILY 05/27/21 [History] Furosemide 40 mg [Lasix 40 MG] 40 mg PO DAILY 05/27/21 [History] Glimepiride 2 mg [Amaryl 2 MG] 1.5 tablet PO DAILY 05/27/21 [History] Metformin HCl 500 mg [Glucophage 500 MG] 500 mg PO BIDWM 05/27/21 [History] Metoprolol Tartrate 50 mg [Lopressor 50 MG] 50 mg PO BID 05/27/21 [History] Simvastatin 40 mg PO DAILY 05/27/21 [History] Zolpidem Tartrate 10 mg [Ambien 10 MG] 10 mg PO HS 05/24/22 [History] Hx Tetanus, Diphtheria Vaccination/Date Given: No Hx Influenza Vaccination/Date Given: Yes Hx Pneumococcal Vaccination/Date Given: Yes Immunizations Up to Date: Yes Travel Risk - International Travel Have you traveled outside of the country in past 3 weeks: No - Coronavirus Screening Are you exhibiting any of the following symptoms?: No - Vaccine Status Have you recieved a Covid-19 vaccination: Yes [employer]: Moderna - Vaccination Dates Date of 2cond Vaccination (if applicable): 04/22/21. - Review of Systems Constitutional: No Fever, No Chills Eyes: No Symptoms Ears, Nose, & Throat: No Symptoms Respiratory: No Cough, No Dyspnea Cardiac: No Chest Pain, No Edema, No Syncope Abdominal/Gastrointestinal: No Abdominal Pain, No Nausea, No Vomiting, No Diarrhea Genitourinary Symptoms: No Dysuria Musculoskeletal: Back Pain (Left lower SI joint), No Neck Pain Skin: No Rash Neurological: No Dizziness, No Focal Weakness, No Sensory Changes Psychological: No Symptoms Endocrine: No Symptoms All Other Systems: Reviewed and Negative - Past Medical History Pertinent Past Medical History: Yes Neurological History: Stroke ENT History: Other Cardiac History: High Cholesterol, Hypertension Respiratory History: No Pertinent History Endocrine Medical History: Diabetes Type I Musculoskeletal History: Arthritis, Fibromyalgia GI Medical History: GI Bleed History: No Pertinent History Psycho-Social History: No Pertinent History Female Reproductive Disorders: No Pertinent History Other Medical History: legally blind - Past Surgical History Past Surgical History: Yes Neuro Surgical History: No Pertinent History Cardiac: CABG, Cardiac Catheterization, Cardiac Stent, Pacemaker Respiratory: No Pertinent History Gastrointestinal: No Pertinent History Genitourinary: No Pertinent History Musculoskeletal: Orthopedic Surgery Female Surgical History: Hysterectomy Other Surgical History: INTRAOCULAR INJECTIONS, LEFT ROTATOR CUFF SURGERY - Social History Smoking Status: Former smoker Exposure to second hand smoke: Yes Drug Use: none Patient Lives Alone: No - Nursing Vital Signs Nursing Vital Signs: Initial Vital Signs Temperature 97.4 F 09/07/22 10:34 Pulse Rate 67 09/07/22 10:34 Respiratory Rate 18 09/07/22 10:34 Blood Pressure 180/95 09/07/22 10:34 O2 Sat by Pulse Oximetry 98 09/07/22 10:34 Pain Scale Pain Intensity [Left Back] 8 Pain Intensity 8 - Physical Exam General Appearance: mild distress, alert Eye Exam: PERRL/EOMI, eyes nml inspection Neck Exam: normal inspection, non-tender, supple, full range of motion, No meningismus, No midline tenderness Respiratory Exam: normal breath sounds, lungs clear, No respiratory distress Cardiovascular Exam: regular rate/rhythm, normal heart sounds Gastrointestinal Exam: soft, No tenderness, No mass Back Exam: normal range of motion, point tenderness (Tender over the left SI joint) Extremity Exam: normal inspection, normal range of motion, No calf tenderness, No pedal edema Neurologic Exam: alert, oriented x 3, cooperative, marketing communications coordinator II-XII nml as tested, normal mood/affect, nml station & gait, sensation nml, No motor deficits Skin Exam: normal color, warm, dry, No rash SpO2 Interpretation: normal SpO2: 98 O2 Delivery: Room Air - Course Nursing assessment & vital signs reviewed: Yes - CT Exams Lumbar Spine CT Interpretation: Other (Reviewed the radiologist report and inform the patient that she has degenerative disc disease and that once again it has been recommended that she have an MRI.) Ordered Tests: Active Orders 24 hr Category Date Time Status LUMBAR SPINE W/O [CT] Stat Exams 09/07/22 10:48 Completed - Progress Progress: unchanged Medical Desision Making - Social Determinants of Health Limited access to: transportation - Diagnostic Testing Radiological Interpretation: Reviewed by me - Risk of complications Low Risk: Low risk of morbidity from additional dx testing or treatment - Departure Departure Disposition: Home Clinical Impression: Degenerative disc disease Condition: Stable Critical Care Time: No Referrals: GALINDO NEWELL [Primary Care Provider] - Follow up/PCP as directed Instructions: Low Back Pain (DC)
[2022-09-07] MEDS ORDERED: TORAdol 30 mg Injection IM ONE (12:16)
[2022-09-07] MEDS ORDERED: TORAdol 30 mg Injection ONE (12:19)
[2022-09-07 12:27] VITALS: BP 164/106; PULSE 60; O2SAT 96
== END 2022-09-07 12:33 | disposition home or self-care (01) ==
LOC: ED 10:22
DX: M51.36 Other intervertebral disc degeneration, lumbar region (principal); M54.50 Low back pain, unspecified; M25.552 Pain in left hip; E78.5 Hyperlipidemia, unspecified; I10 Essential (primary) hypertension; E10.9 Type 1 diabetes mellitus without complications; Z79.84 Long term (current) use of oral hypoglycemic drugs; Z79.899 Other long term (current) drug therapy; Z59.82 Transportation insecurity
CPT/HCPCS: 72131; 96372; 99283; J1885

== ENCOUNTER 2022-10-06 09:55 | Day surgery (SDC) | payer MEDICARE ==
[2022-10-06] MEDS ORDERED: Decadron 4 MG INJ IV ONE (09:56)
[2022-10-06] MEDS ORDERED: LIDOCAINE HCL 1% 50 MG/5 ML VL PF IJ ONE (09:56)
[2022-10-06] MEDS ORDERED: DIPRIVAN 200 MG/20 ML IV ONE (11:37)
[2022-10-06] MEDS ORDERED: Xylocaine-Mpf 2% 5 Ml Vial ONE (11:40)
--- NOTE | 2022-10-06 12:30 | XRAY ---
Indication: Left piriformis injection. Intraoperative fluoroscopy provided for 16 seconds. Single digital spot images submitted for interpretation demonstrates posterior needle tip projecting over the piriformis muscle. Small amount of contrast injected for needle tip placement. Correlate with intraoperative findings/report.
--- NOTE | 2022-10-06 12:40 | XRAY ---
16 seconds of fluoroscopy was used in surgery for a left piriformis injection.
[2022-10-06] MEDS ORDERED: Lactated Ringers 1,000 ML IV ONE (14:06)
== END 2022-10-06 12:10 | disposition home or self-care (01) ==
LOC: SDC-PAIN 09:55
PROVIDERS: ATTEND Psychiatry & Neurology Pain Medicine
DX: M79.18 Myalgia, other site (principal); E11.9 Type 2 diabetes mellitus without complications; Z79.899 Other long term (current) drug therapy
CPT/HCPCS: 20553; 72170; 77002; 82947; J1100; J2001; J2704; Q9966